=== PATIENT | female | born 1990 | race Caucasian/White ===

== ENCOUNTER 2016-06-15 17:45 | Emergency (ER) | payer OTHER ==
[~2016-06-15] VITALS: Ht 172.7 cm; Wt 147.4 kg
[2016-06-15 18:10] VITALS: BP 137/89
[2016-06-15] MEDS ORDERED: BACITRACIN-POLYMYXIN B TOPICAL OINT UD TOP ONE (19:08)
[2016-06-15] MEDS ORDERED: NEOMYCIN-BACITRACIN-POLYM UNITDOSE PKG TOP OINT TOP ONE (19:15)
[2016-06-15] MEDS ORDERED: BACITRACIN TOP OINT 1 UD PKG TOP ONE (19:15)
== END 2016-06-15 20:10 | disposition home or self-care (01) ==
LOC: ER 18:01
DX: S91.011D Laceration without foreign body, right ankle, subsequent encounter (principal); F12.10 Cannabis abuse, uncomplicated; Z48.02 Encounter for removal of sutures; Z88.0 Allergy status to penicillin

== ENCOUNTER 2017-01-23 14:02 | Emergency (ER) | payer SELFPAY ==
[~2017-01-23] VITALS: Ht 172.7 cm; Wt 160.6 kg
[2017-01-23 17:05] VITALS: BP 135/92
== END 2017-01-23 17:43 | disposition home or self-care (01) ==
LOC: ER 14:09
DX: J20.9 Acute bronchitis, unspecified (principal); Z87.81 Personal history of (healed) traumatic fracture; F12.10 Cannabis abuse, uncomplicated

== ENCOUNTER 2017-05-17 12:09 | Inpatient (IN) | payer SELFPAY ==
[~2017-05-17] VITALS: Ht 172.7 cm; Wt 149.7 kg
[2017-05-17] MEDS ORDERED: ACETAMINOPHEN 325 MG TAB PO ONE ×2 (13:23→13:45)
[2017-05-17 14:09] LABS: Basophils # (auto) 0.1 uL; Eosinophils # (auto) 0 uL; Eosinophils % (auto) 0.2 % (0.0-7.0); Mean Corpuscular Volume 79.6 fL (80.0-100.0); Nucleated Red Blood Cells % 0.1 %
[2017-05-17 14:12] LABS: Basophils % (auto) 0.5 % (0.0-2.0); Hematocrit 42.1 % (36.0-46.0); Hemoglobin 13.6 g/dL (12.2-16.2); Lymphocytes # (auto) 2.1 uL; Lymphocytes % (auto) 13.8 % (10.0-50.0); Mean Corpuscular Hemoglobin 25.7 pg (28.0-32.0); Mean Corpuscular Hgb Conc. 32.3 g/dL (32.0-36.0); Monocytes # (auto) 0.6 uL; Monocytes % (auto) 3.8 % (0.0-12.0); Neutrophils # (auto) 12.6 uL; Neutrophils % (auto) 81.7 % (37.0-80.0); Platelet Count (auto) 178 10^3/uL (140-450); Red Blood Cells 5.28 10^6/uL (4.0-5.20); White Blood Cell 15.4 10^3/uL (4.4-10.8)
[2017-05-17 14:20] LABS: Albumin 3.7 g/dL (3.4-5.0); BUN/Creatinine Ratio 17.5; Bilirubin, Total 0.7 mg/dL (0.2-1.0); Calcium 8.8 mg/dL (8.5-10.1); Potassium 4.8 mmol/L (3.5-5.1); Total Protein 8.1 g/dL (6.4-8.2)
[2017-05-17] MEDS ORDERED: SODIUM CHLORIDE 0.9% 1,000 ML IVB ONE (17:53)
[2017-05-17] MEDS ORDERED: cefTRIAXone 1GM/10ml IVPUSH 10 ML IV ONE (19:00)
[2017-05-17] MEDS ORDERED: MORPHINE SULFATE 4 MG/ML SYRG ONE (19:17)
[2017-05-17] MEDS ORDERED: cefTRIAXone SOD 1,000 MG VL ONE (19:17)
[2017-05-17] MEDS ORDERED: ONDANSETRON HCL 4 MG/2 ML VIAL IV ONE (19:30)
[2017-05-17] MEDS ORDERED: MORPHINE SULF INJ 2 MG/ML SYRINGE 1ML IV ONE (19:30)
[2017-05-17] MEDS ORDERED: metroNIDAZOLE 500MG/100ML 100 ML IV ONE (19:30)
[2017-05-17 20:25] LABS: INR 0.99 (0.9-1.15); Partial Thromboplastin Time 26.8 sec (22.64-33.71); Prothrombin Time 10.8 sec (9.37-12.3)
[2017-05-17] MEDS ORDERED: ACETAMINOPHEN 325 MG TAB PO PRN (21:00)
[2017-05-17] MEDS: MORPHINE SULFATE 4 MG/ML SYRG IV PRN (21:37)
[2017-05-17] MEDS: ONDANSETRON HCL 4 MG/2 ML VIAL IV PRN (21:37)
[2017-05-17 21:45] VITALS: BP 113/92
[2017-05-18] MEDS: metroNIDAZOLE 500MG/100ML 100 ML IV SCH ×3 (04:33→21:05)
[2017-05-18] MEDS: MORPHINE SULFATE 4 MG/ML SYRG IV PRN ×3 (04:35→18:38)
[2017-05-18] MEDS ORDERED: cefTRIAXone 1GM/10ml IVPUSH 10 ML IV ONE (05:00)
[2017-05-18 05:52] LABS: Basophils # (auto) 0 uL; Eosinophils # (auto) 0 uL; Eosinophils % (auto) 0.1 % (0.0-7.0); Hemoglobin 11.8 g/dL (12.2-16.2); Lymphocytes # (auto) 1.9 uL; Lymphocytes % (auto) 12.7 % (10.0-50.0); Nucleated Red Blood Cells % 0.1 %
[2017-05-18 05:55] LABS: Basophils % (auto) 0.1 % (0.0-2.0); Hematocrit 36.3 % (36.0-46.0); Mean Corpuscular Hemoglobin 25.9 pg (28.0-32.0); Mean Corpuscular Hgb Conc. 32.4 g/dL (32.0-36.0); Mean Corpuscular Volume 79.8 fL (80.0-100.0); Monocytes % (auto) 6.7 % (0.0-12.0); Neutrophils % (auto) 80.4 % (37.0-80.0); Platelet Count (auto) 334 10^3/uL (140-450); Red Blood Cells 4.54 10^6/uL (4.0-5.20); Red Cell Distribution Width 13.9 % (11.8-14.3); White Blood Cell 14.9 10^3/uL (4.4-10.8)
[2017-05-18 06:34] LABS: BUN/Creatinine Ratio 13.4; Calcium 8.1 mg/dL (8.5-10.1); Potassium 3.9 mmol/L (3.5-5.1)
[2017-05-18] MEDS: ONDANSETRON HCL 4 MG/2 ML VIAL IV PRN ×2 (09:15→18:38)
[2017-05-18 09:42] VITALS: BP 104/31
[2017-05-18] MEDS ORDERED: ROCURONIUM 10MG/ML 10ML VIAL IV ONE (09:59)
[2017-05-18] MEDS ORDERED: METOCLOPRAMIDE HCL 5MG/ml INJ 2ml VIAL ONE (09:59)
[2017-05-18] MEDS ORDERED: MIDAZOLAM HCL 1MG/1ML-2 ML VIAL ONE (09:59)
[2017-05-18] MEDS ORDERED: PROPOFOL 10 MG/ML 20 ML IV ONE (09:59)
[2017-05-18] MEDS ORDERED: LIDOCAINE HCL 2 %PF INJ 10ML AMP IJ ONE (09:59)
[2017-05-18] MEDS ORDERED: fentaNYL CITRATE 100 MCG/2 ML VL ONE (10:20)
[2017-05-18] MEDS ORDERED: KETOROLAC TROMETH 30 MG/ML 1ML VIAL ONE (10:30)
[2017-05-18] MEDS ORDERED: DEXAMETHASONE SOD PHOS 10MG/1ML VIAL INJ ONE (10:30)
[2017-05-18 10:37] LABS: Urine Bacteria FEW /hpf (None Seen); Urine Blood Negative /uL (Negative); Urine Mucus FEW (None Seen); Urine Specific Gravity 1.027 (1.001-1.035); Urine WBC 22 /hpf (0 - 5)
[2017-05-18] MEDS ORDERED: GLYCOPYRROLATE 0.2 MG/ML 1ML VIAL ONE ×2 (10:41→10:42)
[2017-05-18] MEDS ORDERED: NEOSTIGMINE 1 MG/ML INJ (10mg/10ML VIAL) ONE (10:42)
[2017-05-18] MEDS: ONDANSETRON HCL 4 MG/2 ML VIAL IV ONE ×2 (11:00→11:25)
[2017-05-18] MEDS ORDERED: HYDROmorphone HCL 2 MG/ML VL IV PRN ×2 (11:00)
[2017-05-18] MEDS ORDERED: NALOXONE HCL 0.4 MG/ML VIAL IV PRN (11:00)
[2017-05-18 13:03] VITALS: BP 110/57
[2017-05-18 17:00] VITALS: BP 103/46
[2017-05-18] MEDS ORDERED: PANTOPRAZOLE 40 MG/10 ML VIAL IV ONE (22:45)
[2017-05-18 22:50] VITALS: BP 126/72
[2017-05-19 03:58] VITALS: BP 92/39
[2017-05-19] MEDS: metroNIDAZOLE 500MG/100ML 100 ML IV SCH ×3 (04:11→20:11)
[2017-05-19 05:11] VITALS: BP 95/28
[2017-05-19 07:56] VITALS: BP 131/59
[2017-05-19] MEDS: ONDANSETRON HCL 4 MG/2 ML VIAL IV PRN (08:46)
[2017-05-19] MEDS: MORPHINE SULFATE 4 MG/ML SYRG IV PRN (08:46)
[2017-05-19 12:09] VITALS: BP 115/52
[2017-05-19] MEDS ORDERED: HYDROcodone-ACET 5/325MG TAB PO PRN (14:30)
[2017-05-19 17:16] VITALS: BP 116/62
[2017-05-19] MEDS: metroNIDAZOLE 500 MG TAB PO SCH (21:28)
[2017-05-19 21:45] VITALS: BP 105/55
[2017-05-20 05:20] VITALS: BP 108/61
[2017-05-20] MEDS: metroNIDAZOLE 500 MG TAB PO SCH (05:40)
[2017-05-20 06:00] VITALS: BP 127/48
[2017-05-20 10:19] VITALS: BP 127/48
== END 2017-05-20 12:45 | disposition home or self-care (01) | DRG 342 ==
LOC: ER 12:09 → OVERFLOW 12:10 → CENTRAL 21:45
PROVIDERS: ADMIT Nurse Practitioner Family; ATTEND Family Medicine
PROC: 0DTJ4ZZ Resection of Appendix, Percutaneous Endoscopic Approach (ICD-10-PCS; principal; 2017-05-18 10:02)
DX: K35.80 Unspecified acute appendicitis (principal); Z68.43 Body mass index [BMI] 50.0-59.9, adult; E66.01 Morbid (severe) obesity due to excess calories; Z82.49 Family history of ischemic heart disease and other diseases of the circulatory system; Z83.3 Family history of diabetes mellitus; Z82.3 Family history of stroke; Z82.5 Family history of asthma and other chronic lower respiratory diseases; Z80.1 Family history of malignant neoplasm of trachea, bronchus and lung; Z82.61 Family history of arthritis; Z88.0 Allergy status to penicillin
CPT/HCPCS: 36415; 71010; 74176; 80048; 80053; 81001; 82150; 83690; 83735; 84702; 85025; 85610; 85730; 86850; 86900; 86901; 93005; 94761; 96365; 96367; 96375; C9113; J0696; J1100; J1885; J2250; J2405; J2704; J3490

== ENCOUNTER 2017-07-02 20:23 | Emergency (ER) | payer MEDICAID ==
[~2017-07-02] VITALS: Ht 172.7 cm; Wt 145.1 kg
[2017-07-02 20:43] VITALS: BP 146/71
[2017-07-02] MEDS ORDERED: DEXAMETHASONE SOD PHOS 10MG/1ML VIAL INJ IM ONE (23:15)
[2017-07-02] MEDS ORDERED: KETOROLAC TROMETH 60MG/2ML VIAL IM ONE (23:15)
== END 2017-07-02 23:31 | disposition home or self-care (01) ==
LOC: ER 20:27
DX: M54.30 Sciatica, unspecified side (principal); J06.9 Acute upper respiratory infection, unspecified; Z88.0 Allergy status to penicillin
CPT/HCPCS: 81025; 96372; 99284; J1100; J1885

== ENCOUNTER 2017-09-22 20:00 | Emergency (ER) | payer MEDICAID ==
[~2017-09-22] VITALS: Ht 172.7 cm; Wt 147.4 kg
[2017-09-22 21:32] LABS: Albumin 3.5 g/dL (3.4-5.0); BUN/Creatinine Ratio 13.7; Basophils # (auto) 0 uL; Basophils % (auto) 0.4 % (0.0-2.0); Bilirubin, Total 0.4 mg/dL (0.2-1.0); Calcium 8.4 mg/dL (8.5-10.1); Lymphocytes # (auto) 2.7 uL; Lymphocytes % (auto) 28.2 % (10.0-50.0); Magnesium 2.4 mg/dL (1.6-2.6); Mean Corpuscular Volume 80.8 fL (80.0-100.0); Monocytes # (auto) 0.6 uL; Neutrophils # (auto) 6.1 uL; Potassium 4.2 mmol/L (3.5-5.1); Total Protein 7.7 g/dL (6.4-8.2)
[2017-09-22 21:38] LABS: Eosinophils # (auto) 0.2 uL; Eosinophils % (auto) 1.6 % (0.0-7.0); Hematocrit 41.1 % (36.0-46.0); Hemoglobin 13.4 g/dL (12.2-16.2); Mean Corpuscular Hemoglobin 26.3 pg (28.0-32.0); Mean Corpuscular Hgb Conc. 32.6 g/dL (32.0-36.0); Monocytes % (auto) 6.6 % (0.0-12.0); Neutrophils % (auto) 63.2 % (37.0-80.0); Nucleated Red Blood Cells % 0.1 %; Platelet Count (auto) 350 10^3/uL (140-450); Red Blood Cells 5.09 10^6/uL (4.0-5.20); Red Cell Distribution Width 14.7 % (11.8-14.3); White Blood Cell 9.7 10^3/uL (4.4-10.8)
[2017-09-23] MEDS ORDERED: KETOROLAC TROMETH 60MG/2ML VIAL IM ONE (00:15)
[2017-09-23 00:35] LABS: Urine Bacteria NONE SEEN /hpf (None Seen); Urine Blood 2+ /uL (Negative); Urine Specific Gravity 1.022 (1.001-1.035); Urine WBC 5 /hpf (0 - 5)
[2017-09-23 02:32] VITALS: BP 152/86
== END 2017-09-23 03:22 | disposition home or self-care (01) ==
LOC: ER 20:00
DX: S09.90XA Unspecified injury of head, initial encounter (principal); N39.0 Urinary tract infection, site not specified; R42 Dizziness and giddiness; R55 Syncope and collapse; F17.210 Nicotine dependence, cigarettes, uncomplicated; X58.XXXA Exposure to other specified factors, initial encounter; Y93.89 Activity, other specified; Y92.89 Other specified places as the place of occurrence of the external cause; Y99.8 Other external cause status
CPT/HCPCS: 36415; 70450; 80053; 81001; 83735; 85025; 96372; 99285; J1885

== ENCOUNTER 2017-10-21 22:17 | Emergency (ER) | payer MEDICAID ==
[~2017-10-21] VITALS: Ht 172.7 cm; Wt 152.0 kg
[2017-10-21 22:52] LABS: Urine Bacteria FEW /hpf (None Seen); Urine Blood Negative /uL (Negative); Urine Specific Gravity 1.024 (1.001-1.035); Urine WBC 8 /hpf (0 - 5)
[2017-10-21 23:14] LABS: Basophils # (auto) 0.1 uL; Basophils % (auto) 0.7 % (0.0-2.0); Eosinophils # (auto) 0.2 uL; Hemoglobin 13.4 g/dL (12.2-16.2)
[2017-10-21 23:15] LABS: Hematocrit 40.2 % (36.0-46.0); Lymphocytes # (auto) 3.4 uL; Mean Corpuscular Hemoglobin 26.7 pg (28.0-32.0); Mean Corpuscular Hgb Conc. 33.2 g/dL (32.0-36.0); Mean Corpuscular Volume 80.5 fL (80.0-100.0); Monocytes # (auto) 0.6 uL; Monocytes % (auto) 5.3 % (0.0-12.0); Neutrophils # (auto) 7.1 uL; Platelet Count (auto) 347 10^3/uL (140-450); Red Cell Distribution Width 14.3 % (11.8-14.3); White Blood Cell 11.4 10^3/uL (4.4-10.8)
[2017-10-21 23:32] LABS: Albumin 3.7 g/dL (3.4-5.0); BUN/Creatinine Ratio 11.1; Bilirubin, Total 0.3 mg/dL (0.2-1.0); Calcium 8.9 mg/dL (8.5-10.1); Magnesium 2.3 mg/dL (1.6-2.6); Potassium 3.8 mmol/L (3.5-5.1); Total Protein 7.9 g/dL (6.4-8.2)
[2017-10-22 00:20] VITALS: BP 146/71
[2017-10-22] MEDS ORDERED: FAMOTIDINE 20 MG TAB PO ONE (00:45)
== END 2017-10-22 01:35 | disposition home or self-care (01) ==
LOC: ER 22:17
DX: K21.9 Gastro-esophageal reflux disease without esophagitis (principal); N39.0 Urinary tract infection, site not specified; F17.210 Nicotine dependence, cigarettes, uncomplicated; E66.01 Morbid (severe) obesity due to excess calories; Z68.43 Body mass index [BMI] 50.0-59.9, adult; Z88.0 Allergy status to penicillin
CPT/HCPCS: 36415; 71045; 80053; 81001; 81025; 83690; 83735; 85025

== ENCOUNTER 2017-12-27 16:32 | Emergency (ER) | payer MEDICAID ==
[~2017-12-27] VITALS: Ht 172.7 cm; Wt 149.7 kg
[2017-12-27 16:47] VITALS: BP 127/55
[2017-12-27] MEDS ORDERED: KETOROLAC TROMETH 60MG/2ML VIAL IM ONE (18:00)
== END 2017-12-27 19:12 | disposition home or self-care (01) ==
LOC: ER 16:36
DX: M54.9 Dorsalgia, unspecified (principal); N39.0 Urinary tract infection, site not specified; J06.9 Acute upper respiratory infection, unspecified; E78.5 Hyperlipidemia, unspecified; F17.210 Nicotine dependence, cigarettes, uncomplicated; Z88.0 Allergy status to penicillin; Z90.49 Acquired absence of other specified parts of digestive tract
CPT/HCPCS: 71045; 81025; 96372; 99283; J1885

== ENCOUNTER 2018-02-13 16:01 | Emergency (ER) | payer MEDICAID ==
[~2018-02-13] VITALS: Ht 172.7 cm; Wt 147.4 kg
[2018-02-13 17:23] LABS: Urine Bacteria FEW /hpf (None Seen); Urine Blood 3+ /uL (Negative); Urine Mucus FEW (None Seen); Urine Specific Gravity 1.026 (1.001-1.035); Urine WBC 19 /hpf (0 - 5)
[2018-02-13 17:51] LABS: Basophils # (auto) 0.1 uL; Basophils % (auto) 1.2 % (0.0-2.0); Mean Corpuscular Hemoglobin 26.5 pg (28.0-32.0); Monocytes # (auto) 0.6 uL; White Blood Cell 10.8 10^3/uL (4.4-10.8)
[2018-02-13 17:53] LABS: Eosinophils # (auto) 0.1 uL; Eosinophils % (auto) 1.4 % (0.0-7.0); Hematocrit 40.1 % (36.0-46.0); Hemoglobin 13.1 g/dL (12.2-16.2); Lymphocytes # (auto) 2.6 uL; Lymphocytes % (auto) 23.7 % (10.0-50.0); Mean Corpuscular Hgb Conc. 32.6 g/dL (32.0-36.0); Mean Corpuscular Volume 81.2 fL (80.0-100.0); Monocytes % (auto) 5.5 % (0.0-12.0); Neutrophils # (auto) 7.4 uL; Neutrophils % (auto) 68.2 % (37.0-80.0); Platelet Count (auto) 336 10^3/uL (140-450); Red Blood Cells 4.93 10^6/uL (4.0-5.20); Red Cell Distribution Width 14.1 % (11.8-14.3)
[2018-02-13 18:03] LABS: Alanine Aminotransferase 29 U/L (13-56); Albumin 3.2 g/dL (3.4-5.0); Anion Gap 11 (5-15); Aspartate Aminotransferase 16 U/L (15-37); BUN/Creatinine Ratio 14.7; Blood Urea Nitrogen 10 mg/dL (7-18); Carbon Dioxide 22 mmol/L (21-32); Chloride 103 mmol/L (98-107); GFR African American 133 mL/min; GFR Non-African American 110 mL/min; Glucose 109 mg/dL (74-106); Potassium 3.5 mmol/L (3.5-5.1); Sodium 136 mmol/L (136-145)
[2018-02-13 18:08] LABS: Alkaline Phosphatase 71 U/L (45-117); Bilirubin, Total 0.5 mg/dL (0.2-1.0); Total Protein 7.4 g/dL (6.4-8.2)
[2018-02-13] MEDS ORDERED: SODIUM CHLORIDE 0.9% 1,000 ML IV ONE (23:00)
[2018-02-13 23:38] LABS: Basophils # (auto) 0 uL; Basophils % (auto) 0.4 % (0.0-2.0); Eosinophils # (auto) 0.1 uL; Hemoglobin 12.5 g/dL (12.2-16.2); Mean Corpuscular Hgb Conc. 32.4 g/dL (32.0-36.0); Monocytes # (auto) 0.6 uL; Neutrophils # (auto) 6.2 uL; Platelet Count (auto) 329 10^3/uL (140-450)
[2018-02-13 23:40] LABS: Eosinophils % (auto) 1.1 % (0.0-7.0); Hematocrit 38.5 % (36.0-46.0); Lymphocytes # (auto) 3.4 uL; Mean Corpuscular Hemoglobin 26.3 pg (28.0-32.0); Mean Corpuscular Volume 80.9 fL (80.0-100.0); Monocytes % (auto) 5.7 % (0.0-12.0); Neutrophils % (auto) 59.8 % (37.0-80.0); Nucleated Red Blood Cells % 0.1 %; Red Blood Cells 4.76 10^6/uL (4.0-5.20); Red Cell Distribution Width 14.3 % (11.8-14.3); White Blood Cell 10.4 10^3/uL (4.4-10.8)
[2018-02-13 23:53] LABS: INR 0.93 (0.9-1.15)
[2018-02-13 23:57] LABS: Alanine Aminotransferase 25 U/L (13-56); Albumin 2.9 g/dL (3.4-5.0); Anion Gap 11 (5-15); Aspartate Aminotransferase 18 U/L (15-37); BUN/Creatinine Ratio 14.7; Blood Urea Nitrogen 11 mg/dL (7-18); Calcium 7.8 mg/dL (8.5-10.1); Carbon Dioxide 22 mmol/L (21-32); Chloride 107 mmol/L (98-107); GFR African American 118 mL/min; GFR Non-African American 98 mL/min; Glucose 128 mg/dL (74-106); Potassium 3.5 mmol/L (3.5-5.1); Sodium 140 mmol/L (136-145)
[2018-02-14 00:02] LABS: Alkaline Phosphatase 67 U/L (45-117); Bilirubin, Total 0.3 mg/dL (0.2-1.0); Total Protein 6.9 g/dL (6.4-8.2)
[2018-02-14 01:09] VITALS: BP 113/57
== END 2018-02-14 01:32 | disposition home or self-care (01) ==
LOC: ER 16:01
DX: S96.911A Strain of unspecified muscle and tendon at ankle and foot level, right foot, initial encounter (principal); N39.0 Urinary tract infection, site not specified; R51 Headache; R06.02 Shortness of breath; R07.9 Chest pain, unspecified; E78.5 Hyperlipidemia, unspecified; F12.10 Cannabis abuse, uncomplicated; X58.XXXA Exposure to other specified factors, initial encounter; Y93.89 Activity, other specified; Y92.89 Other specified places as the place of occurrence of the external cause; Y99.8 Other external cause status
CPT/HCPCS: 36415; 71046; 73610; 80053; 81001; 83735; 83880; 84443; 84484; 85025; 85379; 85610; 85730; 93005; 94761; 99285; J7030

== ENCOUNTER 2018-02-26 01:11 | Emergency (ER) | payer MEDICAID ==
[~2018-02-26] VITALS: Ht 172.7 cm; Wt 147.4 kg
[2018-02-26] MEDS ORDERED: LORazepam 2MG/ML-1ML VIAL IM ONE (02:45)
[2018-02-26 03:22] VITALS: BP 166/73
== END 2018-02-26 03:50 | disposition home or self-care (01) ==
LOC: ER 01:11
DX: F41.9 Anxiety disorder, unspecified (principal); F12.10 Cannabis abuse, uncomplicated
CPT/HCPCS: 71045; 93005; 96372; 99284; J2060

== ENCOUNTER 2018-02-27 00:41 | Emergency (ER) | payer MEDICAID ==
[~2018-02-27] VITALS: Ht 172.7 cm; Wt 147.4 kg
[2018-02-27 01:15] LABS: Basophils # (auto) 0.1 uL; Lymphocytes # (auto) 3.4 uL; Monocytes # (auto) 0.6 uL; Nucleated Red Blood Cells % 0.1 %; Red Cell Distribution Width 13.8 % (11.8-14.3)
[2018-02-27 01:16] LABS: Eosinophils # (auto) 0.2 uL; Eosinophils % (auto) 1.4 % (0.0-7.0); Hematocrit 39.3 % (36.0-46.0); Lymphocytes % (auto) 30.9 % (10.0-50.0); Mean Corpuscular Hemoglobin 26.5 pg (28.0-32.0); Mean Corpuscular Hgb Conc. 33.1 g/dL (32.0-36.0); Mean Corpuscular Volume 79.9 fL (80.0-100.0); Monocytes % (auto) 5.4 % (0.0-12.0); Neutrophils # (auto) 6.7 uL; Neutrophils % (auto) 61.3 % (37.0-80.0); Platelet Count (auto) 314 10^3/uL (140-450); Red Blood Cells 4.92 10^6/uL (4.0-5.20); White Blood Cell 10.9 10^3/uL (4.4-10.8)
[2018-02-27 01:31] LABS: Anion Gap 10 (5-15); Blood Urea Nitrogen 8 mg/dL (7-18); Calcium 7.7 mg/dL (8.5-10.1); Carbon Dioxide 23 mmol/L (21-32); Chloride 104 mmol/L (98-107); Glucose 179 mg/dL (74-106); Magnesium 1.8 mg/dL (1.6-2.6); Potassium 3.8 mmol/L (3.5-5.1); Sodium 137 mmol/L (136-145)
[2018-02-27 01:34] LABS: Alanine Aminotransferase 25 U/L (13-56); Aspartate Aminotransferase 14 U/L (15-37); BUN/Creatinine Ratio 7.9; GFR African American 84 mL/min; GFR Non-African American 69 mL/min
[2018-02-27 01:38] LABS: Alkaline Phosphatase 72 U/L (45-117); Bilirubin, Total 0.5 mg/dL (0.2-1.0)
[2018-02-27 03:55] LABS: Urine Bacteria FEW /hpf (None Seen); Urine Blood 2+ /uL (Negative); Urine Mucus FEW (None Seen); Urine WBC 23 /hpf (0 - 5)
[2018-02-27 04:13] LABS: Alcohol, Urine < 3.0 mg/dL (0-5); Amphetamine Screen, Urine NEGATIVE (NEGATIVE); Barbiturate Scree,Urine NEGATIVE (NEGATIVE); Benzodiazephine Screen, Urine NEGATIVE (NEGATIVE); Cannabinoid Screen, Urine POSITIVE (NEGATIVE); Cocaine Screen, Urine NEGATIVE (NEGATIVE); Opiate Scree,Urine NEGATIVE (NEGATIVE); Phencyclidine Screen, Urine NEGATIVE (NEGATIVE)
[2018-02-27 06:00] VITALS: BP 141/62
== END 2018-02-27 07:14 | disposition home or self-care (01) ==
LOC: ER 00:44
DX: N39.0 Urinary tract infection, site not specified (principal); R07.89 Other chest pain; J45.909 Unspecified asthma, uncomplicated; F12.10 Cannabis abuse, uncomplicated; Z90.89 Acquired absence of other organs
CPT/HCPCS: 36415; 80053; 80307; 81001; 81025; 83735; 84484; 85025; 93005

== ENCOUNTER 2018-06-27 13:22 | Emergency (ER) | payer MEDICAID ==
[~2018-06-27] VITALS: Ht 175.3 cm; Wt 149.7 kg
[2018-06-27 13:45] VITALS: BP 156/99
== END 2018-06-27 16:57 | disposition home or self-care (01) ==
LOC: ER 13:26
DX: J02.9 Acute pharyngitis, unspecified (principal); R42 Dizziness and giddiness; R11.0 Nausea; R53.83 Other fatigue; J45.909 Unspecified asthma, uncomplicated; E78.5 Hyperlipidemia, unspecified; G43.909 Migraine, unspecified, not intractable, without status migrainosus; F12.90 Cannabis use, unspecified, uncomplicated; Z90.49 Acquired absence of other specified parts of digestive tract
CPT/HCPCS: 71046

== ENCOUNTER → 2019-07-16 | Emergency (ER) | payer MEDICAID ==
[~2019-07-16] VITALS: Ht 172.7 cm; Wt 178.3 kg
[2019-07-16 20:31] LABS: Hematocrit 40.5 % (36.0-46.0); Lymphocytes # (auto) 3.2 uL; Mean Corpuscular Hemoglobin 25.4 pg (28.0-32.0); Monocytes # (auto) 0.6 uL; Monocytes % (auto) 5.1 % (0.0-12.0)
[2019-07-16 20:32] LABS: Basophils # (auto) 0 uL; Basophils % (auto) 0.4 % (0.0-2.0); Eosinophils # (auto) 0.1 uL; Eosinophils % (auto) 1.2 % (0.0-7.0); Lymphocytes % (auto) 29.7 % (10.0-50.0); Mean Corpuscular Hgb Conc. 32.1 g/dL (32.0-36.0); Mean Corpuscular Volume 79.2 fL (80.0-100.0); Neutrophils # (auto) 6.9 uL; Neutrophils % (auto) 63.6 % (37.0-80.0); Nucleated Red Blood Cells % 0.1 %; Platelet Count (auto) 319 10^3/uL (140-450); Red Blood Cells 5.11 10^6/uL (4.0-5.20); Red Cell Distribution Width 14.5 % (11.8-14.3); White Blood Cell 10.9 10^3/uL (4.4-10.8)
[2019-07-16 20:39] LABS: Alanine Aminotransferase 23 U/L (13-56); Albumin 3.2 g/dL (3.4-5.0); Anion Gap 6 (5-15); Aspartate Aminotransferase 12 U/L (15-37); BUN/Creatinine Ratio 18.5; Blood Urea Nitrogen 12 mg/dL (7-18); Calcium 8.5 mg/dL (8.5-10.1); Carbon Dioxide 26 mmol/L (21-32); Chloride 103 mmol/L (98-107); GFR African American 139 mL/min; GFR Non-African American 115 mL/min; Glucose 136 mg/dL (74-106); Potassium 3.9 mmol/L (3.5-5.1); Sodium 135 mmol/L (136-145)
[2019-07-16 20:40] LABS: Urine Bacteria NONE SEEN /hpf (None Seen); Urine Blood Negative /uL (Negative); Urine Specific Gravity 1.018 (1.001-1.035); Urine WBC 3 /hpf (0 - 5)
[2019-07-16 20:41] LABS: Alkaline Phosphatase 72 U/L (45-117); Bilirubin, Total 0.4 mg/dL (0.2-1.0); Total Protein 7.7 g/dL (6.4-8.2)
[2019-07-16 22:42] VITALS: BP 132/76
== END | disposition home or self-care (01) ==
LOC: ER
DX: R42 Dizziness and giddiness (principal); R51 Headache; J45.909 Unspecified asthma, uncomplicated; E78.5 Hyperlipidemia, unspecified
CPT/HCPCS: 36415; 70450; 71045; 80053; 81001; 81025; 82962; 85025; 93005

== ENCOUNTER 2019-07-24 15:13 | Emergency (ER) | payer MEDICAID ==
[~2019-07-24] VITALS: Ht 172.7 cm; Wt 172.4 kg
[2019-07-24 15:29] VITALS: BP 155/63
== END 2019-07-24 18:11 | disposition home or self-care (01) ==
LOC: ER 15:13
DX: J06.9 Acute upper respiratory infection, unspecified (principal); J45.909 Unspecified asthma, uncomplicated; E78.5 Hyperlipidemia, unspecified

== ENCOUNTER 2021-09-22 18:11 | Emergency (ER) | payer MEDICAID ==
[~2021-09-22] VITALS: Ht 172.7 cm; Wt 163.3 kg
[2021-09-22 20:00] LABS: Urine Bacteria FEW /hpf (None Seen); Urine Blood 3+ /uL (Negative); Urine Mucus FEW (None Seen); Urine Specific Gravity 1.028 (1.001-1.035); Urine WBC 12 /hpf (0 - 5)
[2021-09-22 22:43] VITALS: BP 144/75
[2021-09-22] MEDS ORDERED: ONDA-144 PO (22:56)
[2021-09-22] MEDS ORDERED: PSEU1TAB26 PO (22:56)
== END 2021-09-23 00:30 | disposition home or self-care (01) ==
LOC: ER 18:11
DX: R20.2 Paresthesia of skin (principal); F12.10 Cannabis abuse, uncomplicated; J45.909 Unspecified asthma, uncomplicated; E78.5 Hyperlipidemia, unspecified; Z88.0 Allergy status to penicillin; Z88.1 Allergy status to other antibiotic agents
CPT/HCPCS: 71045; 81001; 93971

== ENCOUNTER 2023-07-05 16:26 | Emergency (ER) | payer SELFPAY ==
[~2023-07-05 16:26] MED LIST: ONDA-144 PO; PSEU1TAB26 PO
== END 2023-07-05 18:15 | disposition left against medical advice (07) ==
LOC: ER 16:26
DX: R05.9 Cough, unspecified (principal); Z53.21 Procedure and treatment not carried out due to patient leaving prior to being seen by health care provider

== ENCOUNTER 2024-07-09 15:32 | Inpatient (IN) | payer MEDICAID ==
[~2024-07-09] VITALS: Ht 172.7 cm; Wt 110.5 kg
--- NOTE | 2024-07-09 16:02 | ED.PDOC ---
Musculoskeletal HPI Comments HPI: Poor Historian. 33 y.o female presents to the ED for a chief complaint of bilateral feet pain that has been ongoing for a while. Patient describes symptom as a numbness, sharp, and stabbing sensation. Patient has a history of previous tingling sensation but was not evaluated then for complaint. Patient also presents with right 5th digit bruising s/p stubbing toe chasing her cat. No lacerations reported. Vitals BP: 171/108 HR: 98 Temp: 98 F SPO2: 98% RA RR:19 Past medical history: DM, asthma, hyperlipidemia Past surgical history: Appendectomy Allergies: Amoxicillins, penicillins. REVIEW OF SYSTEMS: CONSTITUTIONAL: Denies acute: fever, diaphoresis, chills, generalized weakness. HEAD: Denies acute: headache, photophobia Eyes: Denies acute: Double vision, vision loss, eye pain, eye discharge. EARS: Denies acute: tinnitus, hearing loss, ear discharge, ear pain, THROAT: Denies acute: sore throat, swelling, difficulty swallowing , pain with swallowing, change in voice. NECK: Denies acute: neck pain, neck swelling, stiff neck. HEART: Denies acute : chest pain, palpitations, LUNGS: Denies acute: SOB, wheezing, cough, hemoptysis ABDOMEN: Denies acute: abdominal pain, Nausea, Vomiting, diarrhea, melena , hematemesis, hematochezia SKIN: Denies acute: rash, redness, lesions, itchiness. EXTREMITIES: Denies acute: calf pain, weakness, denies pain in extremity. Denies acute: Low back pain. Neuro: Denies acute: focal neurological deficit, motor or sensory focal neurological deficit, tremors, seizure like activity, confusion, dizziness, change in mental status, loss of bowel or bladder function, cauda equina like symptoms. : Denies acute: dysuria, hematuria, flank pain, increase in urinary frequency. PSYCH: Denies acute: hallucination, suicidal ideation, homicidal ideation. FEMALE: Denies acute: abnormal vaginal bleeding, foul odor, unusual discharge. PHYSICAL EXAM: General: no acute distress, awake and alert. Head: normocephalic, atraumatic. Neck: supple, trachea is midline, no swelling. Throat: Normal phonation. Eyes:, no erythema, no purulent discharge, no proptosis, no icterus. Heart: regular rate, regular rhythm, no significant murmur appreciated. Lungs: no apparent respiratory distress, Able to speak in full sentences. No wheezing, no rhonchi, no crackles. No stridors Clear to auscultation bilaterally. Abdomen: non tender to palpation, non distended, soft, no guarding, no rebound, + bowel sounds. Morbidly obese Neuro: Awake, Alert, oriented to name, self, situation, follows commands GCS=15. Speech is normal. Skin: no petechia, no purpura, no cyanosis, non-pale, not jaundice. Lower extremities: --no - Pitting edema no deformity, no focal swelling, no calf TTP. Makes eye contact. moves all four extremities. Face: no apparent facial droop. Pedal pulses are palpable. ED COURSE: Chief Complaint: Lower Extremity Time Seen by MD: 15:43 Primary Care Provider: DARWIN Hoff Notes: Medications, Allergies Allergies: Coded Allergies: Amoxicillin (Verified Allergy, Unknown, 02/26/18) Penicillins (Verified Allergy, Unknown, 08/29/15) Home Meds Active Scripts Pseudoephedrine Hcl (SUDAFED CONGESTION) 30 Mg Tab, 30 MG PO BIDPRN PRN for 5 Days, #10 TAB Prov:CONNOR ROE MD 09/22/21 Ondansetron (Zofran) 4 Mg Tab, 4 MG PO Q6HP PRN for 5 Days, #15 TAB Prov:CONNOR ROE MD 09/22/21 Information Source: Patient Mode of Arrival: Wheelchair Location: Bilateral Past Medical History PAST MEDICAL HISTORY: Asthma, DM, High Lipids Surgical History: Appendectomy INCIDENT COORDINATOR History: No Pertinent INCIDENT COORDINATOR History Family History Family History: Unknown Social History Smoker: Non-Smoker Alcohol: Occasionally Drugs: Marijuana Lives In: Home Was a procedure done? Was a procedure done?: No Differential Diagnosis EXT Differential Diagnosis: Cellulitis, CHF, Deep Vein Thrombosis, Compartment Syndrome, Fracture, Dislocation, Gout, Contusion, Strain, Septic, Neurovascular injury, Arthritis X-Ray, Labs, Meds, VS Vital Signs Date Time Temp Pulse Resp B/P (MAP) Pulse Ox O2 Delivery O2 Flow Rate FiO2 07/09/24 22:26 61 18 96 Room Air* 0 21 07/09/24 22:25 98.5 60 20 140/93 (109) 96 98.5 07/09/24 15:52 98.0 70 19 171/108 (129) 98 Lab Test 07/09/24 23:10 07/09/24 20:16 07/09/24 17:55 Range/Units Lactic Acid Level 3.0 *H 2.8 *H 3.5 *H 0.4-2.0 mmol/L White Blood Count 9.9 4.4-10.8 10^3/uL Red Blood Count 5.28 H 4.0-5.20 10^6/uL Hemoglobin 14.2 12.2-16.2 g/dL Hematocrit 43.1 36.0-46.0 % Mean Corpuscular Volume 81.6 80.0-100.0 fL Mean Corpuscular Hemoglobin 26.9 L 28.0-32.0 pg Mean Corpuscular Hemoglobin Concent 32.9 32.0-36.0 g/dL Red Cell Distribution Width 13.6 11.8-14.3 % Platelet Count 297 140-450 10^3/uL Mean Platelet Volume 7.2 6.9-10.8 fL Neutrophils (%) (Auto) 57.8 37.0-80.0 % Lymphocytes (%) (Auto) 33.9 10.0-50.0 % Monocytes (%) (Auto) 6.4 0.0-12.0 % Eosinophils (%) (Auto) 1.2 0.0-7.0 % Basophils (%) (Auto) 0.7 0.0-2.0 % Neutrophils # (Auto) 5.7 1.6-8.6 10 ^3/uL Lymphocytes # (Auto) 3.3 0.4-5.4 10 ^3/uL Monocytes # (Auto) 0.6 0-1.3 10 ^3/uL Eosinophils # (Auto) 0.1 0-0.8 10 ^3/uL Basophils # (Auto) 0.1 0-0.2 10 ^3/uL Nucleated Red Blood Cells 0.1 % Erythrocyte Sedimentation Rate 19 0-20 mm/hr Sodium Level 133 L 136-145 mmol/L Potassium Level 4.0 3.5-5.1 mmol/L Chloride Level 99 98-107 mmol/L Carbon Dioxide Level 22 20-31 mmol/L Anion Gap 12 5-15 Blood Urea Nitrogen 7 L 9-23 mg/dL Creatinine 0.64 0.550-1.02 mg/dL Glomerular Filtration Rate Calc 119 >90 mL/min BUN/Creatinine Ratio 10.9 10.0-20.0 Serum Glucose 263 H 74-106 mg/dL Calcium Level 9.9 8.7-10.4 mg/dL Total Bilirubin 1.2 H 0.2-1.0 mg/dL Aspartate Amino Transferase (AST) 16 13-40 U/L Alanine Aminotransferase (ALT) 21 7-40 U/L Alkaline Phosphatase 74 46-116 U/L C-Reactive Protein High Sensitivity Pending B-Type Natriuretic Peptide 22.07 0-100 pg/mL Total Protein 7.6 5.7-8.2 g/dL Albumin 4.8 3.2-4.8 g/dL Current Medications Medications (Trade) Dose Ordered Sig/Satish Route Start Time Stop Time Status Last Admin Acetaminophen/ Hydrocodone Bitart (Minier 5/325MG Tab) 1 tab ONCE ONCE PO 07/09/24 16:00 07/09/24 16:01 DC 07/09/24 17:19 Sodium Chloride 1,000 ml @ 1,000 mls/hr Q1H ONCE IV 07/09/24 20:00 07/09/24 20:59 DC 07/09/24 20:00 Sodium Chloride 1,000 ml @ 1,000 mls/hr Q1H ONCE IV 07/09/24 21:45 07/09/24 22:44 DC 07/09/24 21:45 Clindamycin Phosphate 50 ml @ 50 mls/hr ONCE ONCE IV 07/10/24 00:15 07/10/24 01:14 DC 07/10/24 00:16 [place] [address] Ph: [phone] DIAGNOSTIC IMAGING Diagnostic Imaging Report : [id number] Signed PATIENT: JJ STUBBS ACCT: [id number] UNIT: [id number] : 1990 LOC: ER ROOM / BED: / AGE / SEX: 33 / F ADM STATUS: REG ER SERVICE [id number] ORDERING PHYSICIAN: NEY MENDOZA DO PROCEDURE(s): RTOE5 - R 5TH TOE XRAY REASON: pain ORDER NUMBER(s): [id number], ACCESSION NUMBER(s): [id number] CLINICAL INDICATION: pain TECHNIQUE: 4 radiographic views of the right 5th toe were obtained. Comparison: None FINDINGS/IMPRESSION: There is no evidence of acute fracture or dislocation. The visualized joint space is well maintained. The alignment is anatomical. There is no radiopaque foreign body. ATED BY: RADHA RAHMAN DO DICTATED DATE/TIME: 07/09/241625 SIGNED BY: RADHA RAHMAN DO SIGNED DATE/TIME: 07/09/241625 CC: [place] [address] Ph: [phone] DIAGNOSTIC IMAGING Diagnostic Imaging Report : [id number] Signed PATIENT: JJ STUBBS ACCT: [id number] UNIT: [id number] : 1990 LOC: ER ROOM / BED: / AGE / SEX: 33 / F ADM STATUS: REG ER SERVICE [id number] ORDERING PHYSICIAN: NEY MENDOZA DO PROCEDURE(s): BLDVT - BiLat Lower DVT REASON: leg pain ORDER NUMBER(s): [id number], ACCESSION NUMBER(s): [id number] EXAM: US Duplex Bilateral Lower Extremities Veins CLINICAL INDICATION: leg pain TECHNIQUE: Real-time duplex ultrasound scan of the bilateral lower extremity veins integrating B-mode two-dimensional vascular structure, Doppler spectral analysis, color flow Doppler imaging and compression. COMPARISON: LT LOWER DVT on DOS: 09/22/21 FINDINGS: RIGHT DEEP VEINS: Unremarkable. No DVT in the right common femoral, femoral, proximal deep femoral or popliteal veins. The veins demonstrate normal color flow, are normally compressible, with normal phasic flow and/or augmentation response. RIGHT SUPERFICIAL VEINS: Unremarkable. No thrombus in the visualized right great saphenous vein. LEFT DEEP VEINS: Unremarkable. No DVT in the left common femoral, femoral, proximal deep femoral or popliteal veins. The veins demonstrate normal color flow, are normally compressible, with normal phasic flow and/or augmentation response. LEFT SUPERFICIAL VEINS: Unremarkable. No thrombus in the visualized left great saphenous vein. SOFT TISSUES: No acute findings. No popliteal cyst. OTHER FINDINGS: . None. . . .. IMPRESSION: No DVT. ATED BY: CONNOR ROMERO MD DICTATED DATE/TIME: 07/09/241634 SIGNED BY: CONNOR ROMERO MD SIGNED DATE/TIME: 07/09/241634 CC: Time of 1ST Reevaluation: 15:54 Reevaluation 1ST: Unchanged Patient Education/Counseling: Diagnosis, Treatment Family Education/Counseling: No Family Present Comments Patient presented with the above HPI.--feet numbness and tingling----workup was initiated. patient was found with the above mentioned diagnosis. the following medications were ordered: please refer to order lists of meds and tests obtained by myself Dr. Mendoza. Patient ED course and VS have been stabilized. Patient has been reassessed in the ED and remained in a stable condition. Pertinent incidental findings were discussed with the patient and/or family. Patient/family voices understanding and is agreeable with plan. Patient has been observed in the ED adequate length of time to insure improvement/stability. Escalation of care considered: Consideration of escalation to observation or admission Patient was admitted for further evaluation and treatment as Lactic Acid continues to rise despite fluid resuscitation All the reports of any imaging studies that were ordered by myself were reviewed by myself. Departure 1 Departure Time of Disposition: 19:53 Impression: Primary Impression: Uncontrolled diabetes mellitus Additional Impressions: Numbness and tingling of both feet Contusion of right foot including toes Elevated lactic acid level Disposition: ADMITTED INPATIENT Admit to: Tele Condition: Guarded Additional Instructions: [facility] [id number] [place] [id number] Ph: [phone] DIAGNOSTIC IMAGING Diagnostic Imaging Report : [id number] Signed PATIENT: JJ STUBBS ACCT: [id number] UNIT: [id number] : 1990 LOC: ER ROOM / BED: / AGE / SEX: 33 / F ADM STATUS: REG ER SERVICE 1548 ORDERING PHYSICIAN: NEY MENDOZA DO PROCEDURE(s): RTOE5 - R 5TH TOE XRAY REASON: pain ORDER NUMBER(s): [id number], ACCESSION NUMBER(s): [id number] CLINICAL INDICATION: pain TECHNIQUE: 4 radiographic views of the right 5th toe were obtained. Comparison: None FINDINGS/IMPRESSION: There is no evidence of acute fracture or dislocation. The visualized joint space is well maintained. The alignment is anatomical. There is no radiopaque foreign body. ATED BY: RADHA RAHMAN DO DICTATED DATE/TIME: 07/09/241625 SIGNED BY: RADHA RAHMAN DO SIGNED DATE/TIME: 07/09/241625 CC: [place] [address] Ph: [phone] DIAGNOSTIC IMAGING Diagnostic Imaging Report : [id number] Signed PATIENT: JJ STUBBS ACCT: [id number] UNIT: [id number] : 1990 LOC: ER ROOM / BED: / AGE / SEX: 33 / F ADM STATUS: REG ER SERVICE 1543 ORDERING PHYSICIAN: NEY MENDOZA DO PROCEDURE(s): BLDVT - BiLat Lower DVT REASON: leg pain ORDER NUMBER(s): [id number], ACCESSION NUMBER(s): [id number] EXAM: US Duplex Bilateral Lower Extremities Veins CLINICAL INDICATION: leg pain TECHNIQUE: Real-time duplex ultrasound scan of the bilateral lower extremity veins integrating B-mode two-dimensional vascular structure, Doppler spectral analysis, color flow Doppler imaging and compression. COMPARISON: LT LOWER DVT on DOS: 09/22/21 FINDINGS: RIGHT DEEP VEINS: Unremarkable. No DVT in the right common femoral, femoral, proximal deep femoral or popliteal veins. The veins demonstrate normal color flow, are normally compressible, with normal phasic flow and/or augmentation response. RIGHT SUPERFICIAL VEINS: Unremarkable. No thrombus in the visualized right great saphenous vein. LEFT DEEP VEINS: Unremarkable. No DVT in the left common femoral, femoral, proximal deep femoral or popliteal veins. The veins demonstrate normal color flow, are normally compressible, with normal phasic flow and/or augmentation response. LEFT SUPERFICIAL VEINS: Unremarkable. No thrombus in the visualized left great saphenous vein. SOFT TISSUES: No acute findings. No popliteal cyst. OTHER FINDINGS: . None. . . .. IMPRESSION: No DVT. ATED BY: CONNOR ROMERO MD DICTATED DATE/TIME: 07/09/241634 SIGNED BY: CONNOR ROMERO MD SIGNED DATE/TIME: 07/09/24 163 CC: Discharged With: Self Critical Care Note Critical Care Time?: No I personally scribed for NEY MENDOZA DO ([email or web address]) on 07/09/24 at 16:02. Electronically submitted by Katerin Silva ([facility]). I personally scribed for NEY MENDOZA DO ([email or web address]) on 07/09/24 at 18:30. Electronically submitted by Katerin Silva ([facility]). I personally scribed for NEY MENDOZA DO ([email or web address]) on 07/09/24 at 19:57. Electronically submitted by Katerin Silva ([facility]). I personally scribed for NEY MENDOZA DO ([email or web address]) on 07/10/24 at 00:08. Electronically submitted by Maximiliano Mcginnis ([email or web address]). NEY MENDOZA DO Jul 09, 2024 16:02
--- NOTE | 2024-07-09 16:28 | DVH ---
CLINICAL INDICATION: pain TECHNIQUE: 4 radiographic views of the right 5th toe were obtained. Comparison: None FINDINGS/IMPRESSION: There is no evidence of acute fracture or dislocation. The visualized joint space is well maintained. The alignment is anatomical. There is no radiopaque foreign body.
--- NOTE | 2024-07-09 16:37 | DVH ---
EXAM: US Duplex Bilateral Lower Extremities Veins CLINICAL INDICATION: leg pain TECHNIQUE: Real-time duplex ultrasound scan of the bilateral lower extremity veins integrating B-mod e two-dimensional vascular structure, Doppler spectral analysis, color flow Doppler imaging and compr ession. COMPARISON: LT LOWER DVT on DOS: 09/22/21 FINDINGS: RIGHT DEEP VEINS: Unremarkable. No DVT in the right common femoral, femoral, proximal deep femoral or popliteal veins. The veins demonstrate normal color flow, are normally compressible, with normal phasic flow and/or augmentation response. RIGHT SUPERFICIAL VEINS: Unremarkable. No thrombus in the visualized right great saphenous vein. LEFT DEEP VEINS: Unremarkable. No DVT in the left common femoral, femoral, proximal deep femoral o r popliteal veins. The veins demonstrate normal color flow, are normally compressible, with normal p hasic flow and/or augmentation response. LEFT SUPERFICIAL VEINS: Unremarkable. No thrombus in the visualized left great saphenous vein. SOFT TISSUES: No acute findings. No popliteal cyst. OTHER FINDINGS: . None. . . .. IMPRESSION: No DVT.
[2024-07-09] MEDS: HYDROcodone-ACET 5/325MG TAB PO ONE (17:19)
[2024-07-09 18:13] LABS: Basophils # (auto) 0.1 10 ^3/uL (0-0.2); Basophils % (auto) 0.7 % (0.0-2.0); Eosinophils # (auto) 0.1 10 ^3/uL (0-0.8); Eosinophils % (auto) 1.2 % (0.0-7.0); Hematocrit 43.1 % (36.0-46.0); Hemoglobin 14.2 g/dL (12.2-16.2); Lymphocytes # (auto) 3.3 10 ^3/uL (0.4-5.4); Lymphocytes % (auto) 33.9 % (10.0-50.0); Mean Corpuscular Hemoglobin 26.9 pg (28.0-32.0); Mean Corpuscular Hgb Conc. 32.9 g/dL (32.0-36.0); Mean Corpuscular Volume 81.6 fL (80.0-100.0); Monocytes # (auto) 0.6 10 ^3/uL (0-1.3); Monocytes % (auto) 6.4 % (0.0-12.0); Neutrophils # (auto) 5.7 10 ^3/uL (1.6-8.6); Neutrophils % (auto) 57.8 % (37.0-80.0); Nucleated Red Blood Cells % 0.1 %; Platelet Count (auto) 297 10^3/uL (140-450); Red Blood Cells 5.28 10^6/uL (4.0-5.20); Red Cell Distribution Width 13.6 % (11.8-14.3); White Blood Cell 9.9 10^3/uL (4.4-10.8)
[2024-07-09 18:31] LABS: Alanine Aminotransferase 21 U/L (7-40); Albumin 4.8 g/dL (3.2-4.8); Alkaline Phosphatase 74 U/L (46-116); Anion Gap 12 (5-15); Aspartate Aminotransferase 16 U/L (13-40); BUN/Creatinine Ratio 10.9 (10.0-20.0); Bilirubin, Total 1.2 mg/dL (0.2-1.0); Calcium 9.9 mg/dL (8.7-10.4); Carbon Dioxide 22 mmol/L (20-31); Chloride 99 mmol/L (98-107); Total Protein 7.6 g/dL (5.7-8.2)
[2024-07-09 19:18] LABS: Blood Urea Nitrogen 7 mg/dL (9-23); Glucose 263 mg/dL (74-106); Sodium 133 mmol/L (136-145)
[2024-07-09 19:21] LABS: Erythrocyte Sedimentation Rate 19 mm/hr (0-20)
[2024-07-09 19:24] LABS: Lactic Acid w/Reflex 3.5 mmol/L (0.4-2.0)
[2024-07-09] MEDS: SODIUM CHLORIDE 0.9% 1,000 ML IV ONE ×2 (20:00→21:45)
[2024-07-09 22:26] VITALS: PULSE 61; RESP 18; O2SAT 96
[2024-07-10] MEDS: CLINDAMYCIN 900MG IV 50 ML IV ONE (00:16)
[2024-07-10] MEDS ORDERED: MORPHINE SULFATE INJ 2 MG/ml SYRG IV PRN (01:45)
[2024-07-10] MEDS ORDERED: NITROGLYCERIN 0.4 MG SL TAB SL PRN (01:45)
[2024-07-10] MEDS ORDERED: DEXTROSE (50%) 50ML SYRG IV PRN (01:45)
--- NOTE | 2024-07-10 01:49 | DVHHPRES ---
History of Present Illness Resident Creating Document: FRANNY JAFFE RESIDENT History of Present Illness Lindy Verduzco is a 33-year-old female with a PMH of type 2 DM, asthma, HLD, sciatica presented to the ED with the chief complaints of tingling, numbness, sharp pain in the b/l feet for past 2 months. Patient reported she is not on medications for DM, HLD, asthma for past 2 years due to insulin she shows. The patient started having tingling and numbness and pain to touch, pain when walking for past 2 months which is getting worsening, difficulty in walking due to discomfort which made her to visit ED. patient did not monitor her blood sugar at home cause he do not have glucometer. Patient also presents with right 5th digit bruising s/p stubbing toe chasing her cat. No lacerations reported. Patient denies nausea, vomiting, diarrhea, abdominal pain, dizziness, and other acute associated symptoms PMH: Type 2 DM, asthma, HLD, sciatica PSH: Appendectomy Family history: Fibromyalgia neuropathy in family Social history: Lives with family. Smokes marijuana and occasional alcohol abuse but denies other drug abuse Allergies: Amoxicillin and penicillins Home medications: None Review of Systems Constitutional: No: Fever, Chills, Sweats, Weakness, Malaise, Other Eyes: No: Pain, Vision change, Conjunctivae inflammation, Eyelid inflammation, Other, Redness ENT: No: Ear pain, Ear discharge, Nose pain, Nose discharge, Nose congestion, Mouth pain, Mouth swelling, Throat pain, Throat swelling, Other Respiratory: No: Cough, Dry, Shortness of breath, SOB with excertion, Wheezing, Hemoptysis, Pleuritic Pain, Sputum, Wheezing, Other Cardiovascular: No: Chest Pain, Palpitations, Orthopnea, Paroxysmal Noc. Dyspnea, Edema, Lt Headedness, Other Gastrointestinal: No: Nausea, Vomiting, Abdominal Pain, Diarrhea, Constipation, Melena, Hematochezia, Other Genitourinary: No Dysuria, No Frequency, No Incontinence, No Hematuria, No Retention, No Other Musculoskeletal: foot pain (Tingling and numbness) Skin: No: Rash, Lesions, Jaundice, Bruising, Other Neurological: Other (Tingling and numbness in bilateral feet) Allergies: Coded Allergies: Amoxicillin (Verified Allergy, Unknown, 02/26/18) Penicillins (Verified Allergy, Unknown, 08/29/15) Medications Current Medications Medications Dose Ordered Sig/Satish Route Start Time Stop Time Status Last Admin Dose Admin Sodium Chloride 10 ml Q8HR IV 07/10/24 06:00 Sodium Chloride 1,000 ml @ 60 mls/hr [id number] IV 07/10/24 01:45 Ondansetron HCl 4 mg Q4HP PRN IV 07/10/24 01:45 Enoxaparin Sodium 40 mg DAILY SC 07/10/24 10:00 Acetaminophen 650 mg Q6HP PRN PO 07/10/24 01:45 Morphine Sulfate 2 mg Q4HPRN PRN IV 07/10/24 01:45 Nitroglycerin 0.4 mg Q5MINP PRN SL 07/10/24 01:45 Morphine Sulfate 2 mg Q30M PRN IV 07/10/24 01:45 Diagnostic Test (Pha) 1 strip ACHS 07/10/24 07:00 Insulin Human Regular ACHS SC 07/10/24 07:00 Dextrose 50 ml UD PRN IV 07/10/24 01:45 Exam Vital Signs Vital Signs Date Time Temp Pulse Resp B/P (MAP) Pulse Ox O2 Delivery O2 Flow Rate FiO2 07/09/24 22:26 61 18 96 Room Air* 0 21 07/09/24 22:25 98.5 140/93 (109) 98.5 Exam Pt is lying on bed General Appearance: Anxious, Oriented X3, Cooperative, mild distress HEENT: Atraumatic, Mucous membranes moist/pink Respiratory: Clear to auscultation, Normal air movement, No added sounds Cardiovascular: Regular rate, Normal S1, Normal S2, No murmurs Abdominal: Active bowel sounds, Soft, no distention, no tenderness Extremities: Pain to touch bilateral feet. No edema, Normal pulses, Skin: No Significant rash, except past surgical scars Neuro: Normal speech, Psych/Mental Status: Mental status NL, Mood NL Nurse was there as sharperone during examination Labs/Xrays Labs Test 07/09/24 23:10 07/09/24 17:55 Range/Units Lactic Acid Level 3.0 *H 0.4-2.0 mmol/L White Blood Count 9.9 4.4-10.8 10^3/uL Red Blood Count 5.28 H 4.0-5.20 10^6/uL Hemoglobin 14.2 12.2-16.2 g/dL Hematocrit 43.1 36.0-46.0 % Mean Corpuscular Volume 81.6 80.0-100.0 fL Mean Corpuscular Hemoglobin 26.9 L 28.0-32.0 pg Mean Corpuscular Hemoglobin Concent 32.9 32.0-36.0 g/dL Red Cell Distribution Width 13.6 11.8-14.3 % Platelet Count 297 140-450 10^3/uL Mean Platelet Volume 7.2 6.9-10.8 fL Neutrophils (%) (Auto) 57.8 37.0-80.0 % Lymphocytes (%) (Auto) 33.9 10.0-50.0 % Monocytes (%) (Auto) 6.4 0.0-12.0 % Eosinophils (%) (Auto) 1.2 0.0-7.0 % Basophils (%) (Auto) 0.7 0.0-2.0 % Neutrophils # (Auto) 5.7 1.6-8.6 10 ^3/uL Lymphocytes # (Auto) 3.3 0.4-5.4 10 ^3/uL Monocytes # (Auto) 0.6 0-1.3 10 ^3/uL Eosinophils # (Auto) 0.1 0-0.8 10 ^3/uL Basophils # (Auto) 0.1 0-0.2 10 ^3/uL Nucleated Red Blood Cells 0.1 % Erythrocyte Sedimentation Rate 19 0-20 mm/hr Sodium Level 133 L 136-145 mmol/L Potassium Level 4.0 3.5-5.1 mmol/L Chloride Level 99 98-107 mmol/L Carbon Dioxide Level 22 20-31 mmol/L Anion Gap 12 5-15 Blood Urea Nitrogen 7 L 9-23 mg/dL Creatinine 0.64 0.550-1.02 mg/dL Glomerular Filtration Rate Calc 119 >90 mL/min BUN/Creatinine Ratio 10.9 10.0-20.0 Serum Glucose 263 H 74-106 mg/dL Calcium Level 9.9 8.7-10.4 mg/dL Total Bilirubin 1.2 H 0.2-1.0 mg/dL Aspartate Amino Transferase (AST) 16 13-40 U/L Alanine Aminotransferase (ALT) 21 7-40 U/L Alkaline Phosphatase 74 46-116 U/L B-Type Natriuretic Peptide 22.07 0-100 pg/mL Total Protein 7.6 5.7-8.2 g/dL Albumin 4.8 3.2-4.8 g/dL Assessment/Plan Assessment/Plan # uncontrolled type 2 DM with complications #? Peripheral neuropathy likely due to diabetes - Hba1c 8.6 - Accu-Cheks and ISS -ordered gabapentin for now -DVT scan showed negative -ordered B12 level and TSH are wnl # Lactic acidosis -monitor lab for now -on IVF # Medication noncompliant -counseled regarding compliance for more than 17 minutes # marijuana abuse disorder -counseled regarding cessation for more than 17 minutes # contusion of left small toe -x-ray done, no fracture -pain management as needed # morbid obesity with a BMI 37 -counseled regarding lifestyle modifications # elevated blood pressure on POA likely due to anxiety - monitor for now PUD PPX: Protonix VTE PPX: Lovenox Diet: Diabetic diet Goals of care discussed with the patient for more than 27 minutes: Full code status Case discussed with Dr. Chapa, patient and nurse Plan discussed with: Patient My Orders Orders - FRANNY JAFFE RESIDENT Procedure Category Date Status Time Admit ADMIT 07/10/24 Transmitted 01:31 Allergies MARIBEL 07/10/24 In Process 01:31 Code Status CODE 07/10/24 Transmitted 01:31 Sodium Chloride Lock PHA 07/10/24 In Process (Saline Lock Ns) 06:00 Sodium Chloride 0.9% PHA 07/10/24 In Process 01:45 Ondansetron Hcl PHA 07/10/24 In Process (Zofran) 01:45 Enoxaparin Sodium PHA 07/10/24 In Process (Lovenox) 10:00 Cardiac DIET 07/10/24 Transmitted Diet-2gna,Lofat,Lochol Breakfast Condition: Stable AMRIBEL 07/10/24 In Process 01:31 Acetaminophen Tablet PHA 07/10/24 In Process (Tylenol Tablet) 01:45 Morphine Sulfate PHA 07/10/24 In Process Injection 01:45 Nitroglycerin PHA 07/10/24 In Process Sublingual (Ntrostat 01:45 Morphine Sulfate PHA 07/10/24 In Process Injection 01:45 Oxygen By Nasal RT 07/10/24 Transmitted Cannula 01:31 Stat Ekg For Chest MARIBEL 07/10/24 In Process Pain 01:31 Notify Md Of Changes MARIBEL 07/10/24 In Process From Base 01:31 Comprehensive LAB 07/10/24 Logged Metabolic Panel 04:00 Complete Blood Count LAB 07/10/24 Logged 04:00 Ammonia LAB 07/10/24 Logged 01:34 Drug Screen LAB 07/10/24 Logged 01:34 Blood Alcohol LAB 07/10/24 Logged 01:34 Thyroid Stimulating LAB 07/10/24 Logged Hormone 01:34 Rapid Influenza A&B LAB 07/10/24 Logged 01:34 Covid19 Antigen Asha LAB 07/10/24 Logged Magnesium LAB 07/10/24 Logged 01:34 Urinalysis LAB 07/10/24 Logged 01:34 Vitamin B12 LAB 07/10/24 Logged 01:34 Glucose Blood PHA 07/10/24 In Process (Accu-Chek Comfort 07:00 Insulin R (Human) PHA 07/10/24 In Process (Insulin R) 07:00 Dextrose 50% Syringe PHA 07/10/24 In Process 01:45 Date of Service: Jul 10, 2024 Billing Provider: DENIS CHAPA MD Common Visit Codes: [id number] INP/OBS CARE (HIGH) FRANNY JAFFE RESIDENT Jul 10, 2024 01:49 DENIS CHAPA MD Jul 10, 2024 08:43
[2024-07-10 02:18] LABS: Basophils # (auto) 0.1 10 ^3/uL (0-0.2); Basophils % (auto) 0.6 % (0.0-2.0); Eosinophils # (auto) 0.1 10 ^3/uL (0-0.8); Eosinophils % (auto) 1.3 % (0.0-7.0); Hematocrit 40.5 % (36.0-46.0); Hemoglobin 13.4 g/dL (12.2-16.2); Lymphocytes # (auto) 3.4 10 ^3/uL (0.4-5.4); Lymphocytes % (auto) 37.7 % (10.0-50.0); Mean Corpuscular Hemoglobin 26.9 pg (28.0-32.0); Mean Corpuscular Volume 81.4 fL (80.0-100.0); Monocytes # (auto) 0.6 10 ^3/uL (0-1.3); Monocytes % (auto) 7.1 % (0.0-12.0); Neutrophils # (auto) 4.9 10 ^3/uL (1.6-8.6); Neutrophils % (auto) 53.3 % (37.0-80.0); Nucleated Red Blood Cells % 0.1 %; Platelet Count (auto) 277 10^3/uL (140-450); Red Blood Cells 4.97 10^6/uL (4.0-5.20); Red Cell Distribution Width 13.7 % (11.8-14.3); White Blood Cell 9.1 10^3/uL (4.4-10.8)
[2024-07-10 02:27] LABS: Alanine Aminotransferase 18 U/L (7-40); Alkaline Phosphatase 63 U/L (46-116); Anion Gap 11 (5-15); BUN/Creatinine Ratio 11.7 (10.0-20.0); Calcium 8.8 mg/dL (8.7-10.4); Carbon Dioxide 21 mmol/L (20-31); Chloride 102 mmol/L (98-107); Magnesium 1.6 mg/dL (1.6-2.6); Potassium 3.6 mmol/L (3.5-5.1)
[2024-07-10 02:28] LABS: Albumin 4.2 g/dL (3.2-4.8); Bilirubin, Total 0.9 mg/dL (0.2-1.0); Total Protein 6.7 g/dL (5.7-8.2)
[2024-07-10 03:00] LABS: Aspartate Aminotransferase 11 U/L (13-40); Blood Alcohol < 3.0 mg/dL (<10); Blood Urea Nitrogen 7 mg/dL (9-23); Glucose 255 mg/dL (74-106); Sodium 134 mmol/L (136-145)
[2024-07-10] MEDS: PANTOPRAZOLE 40 MG/10 ML VIAL INJ IV ONE (03:05)
[2024-07-10] MEDS: SODIUM CHLORIDE 0.9% 1,000 ML IV SCH ×4 (03:06→20:15)
[2024-07-10] MEDS: GABAPENTIN 100 MG CAP PO ONE (03:21)
[2024-07-10 04:11] LABS: COVID19 ANTIGEN SOFIA FIA NEGATIVE (NEGATIVE); Rapid Influenza A Negative (Negative); Rapid Influenza B Negative (Negative)
[2024-07-10] MEDS: SODIUM CHLOR 0.9% PF (SALINE LOCK) 10ML VIAL/SYR IV SCH (06:02)
[2024-07-10] MEDS: ACCU-CHEK COMFORT CURVE STRIP VI SCH (07:00)
[2024-07-10] MEDS: InsuLIN REG 1unit/0.01ml Soln (100units/ml) SC SCH ×2 (08:15→16:24)
[2024-07-10 08:51] LABS: Ferritin 93.4 ng/mL (10-291)
[2024-07-10 08:52] LABS: Folate (Folic Acid) 9.07 ng/mL (>5.38)
[2024-07-10 09:23] LABS: Lactic Acid w/Reflex 2.6 mmol/L (0.4-2.0)
[2024-07-10] MEDS: ONDANSETRON HCL 4 MG/2 ML VIAL IV PRN (09:45)
[2024-07-10] MEDS: MORPHINE SULFATE INJ 2 MG/ml SYRG IV PRN (09:45)
[2024-07-10] MEDS: ENOXAPARIN SOD 40 MG/0.4 ML SYRINGE SC SCH (10:13)
[2024-07-10 11:03] VITALS: BP 163/85; PULSE 67; RESP 17; TEMP 98.1; O2SAT 97
--- NOTE | 2024-07-10 11:14 | DVHPNRES ---
Progress Note Date Seen: Jul 10, 2024 Resident Creating Document: HAYDEE CREWS RESIDENT Medical Necessity Reason Pt with a Central, PICC or Fol: No Subjective Review of Systems Lindy Verduzco is a 33-year-old female with a PMH of hypertension, type 2 DM, asthma, HLD, sciatica presented to the ED with the chief complaints of tingling, numbness, sharp pain in the b/l feet for past 2 months. Patient reported she is not on medications for DM, HLD, asthma for past 2 years due to insurance issues. The patient started having tingling and numbness and pain to touch, pain when walking for past 2 months which is getting worsening, difficulty in walking due to discomfort which made her to visit ED. patient did not monitor her blood sugar at home cause he do not have glucometer. Patient also presents with right 5th digit bruising s/p stubbing toe chasing her cat. No lacerations reported. Patient denies nausea, vomiting, diarrhea, abdominal pain, dizziness, and other acute associated symptoms. Patient denies shortness of breaths/chest pain/palpitations/diaphoresis/abdominal or urinary symptoms. Lower extremity Dopplers negative, toe x-ray is negative. Lactic acid elevated at 3.5, patient was started on IV NS. On examination, she has a lot of tenderness in bilateral lower extremity, with bruise seen on the right 5th digit. Feeble pulses. PMH: Type 2 DM, asthma, HLD, sciatica PSH: Appendectomy Family history: Fibromyalgia neuropathy in family Social history: Lives with family. Smokes marijuana and occasional alcohol abuse but denies other drug abuse Allergies: Amoxicillin and penicillins Home medications: None Patient seen and examined at the bedside. Arterial duplex pending Objective vital signs Vital Sign Date Time Temp Pulse Resp B/P (MAP) Pulse Ox O2 Delivery O2 Flow Rate FiO2 07/10/24 10:12 98.1 66 16 182/87 (118) 97 98.1 07/10/24 07:49 Room Air 07/09/24 22:26 0 21 Total Intake and Output 07/09/24 07/09/24 07/10/24 15:00 23:00 07:00 Intake Total 1000 ml 1050 ml Balance 1000 ml 1050 ml medications Current Medications Medications Dose Ordered Sig/Satish Route Start Time Stop Time Status Last Admin Dose Admin Sodium Chloride 10 ml Q8HR IV 07/10/24 06:00 07/10/24 06:02 10 ML Ondansetron HCl 4 mg Q4HP PRN IV 07/10/24 01:45 07/10/24 09:45 4 MG Enoxaparin Sodium 40 mg DAILY SC 07/10/24 10:00 07/10/24 10:13 40 MG Acetaminophen 650 mg Q6HP PRN PO 07/10/24 01:45 Morphine Sulfate 2 mg Q4HPRN PRN IV 07/10/24 01:45 07/10/24 09:45 2 MG Nitroglycerin 0.4 mg Q5MINP PRN SL 07/10/24 01:45 Morphine Sulfate 2 mg Q30M PRN IV 07/10/24 01:45 Diagnostic Test (Pha) 1 strip ACHS 07/10/24 07:00 07/10/24 07:00 1 STRIP Dextrose 50 ml UD PRN IV 07/10/24 01:45 Sodium Chloride 1,000 ml @ 100 mls/hr Q10H IV 07/10/24 08:30 07/10/24 09:45 100 MLS/HR Ergocalciferol 50,000 unit Q7D PO 07/10/24 10:00 Insulin Human Regular IQ4HR SC 07/10/24 12:00 Lisinopril 10 mg DAILY PO 07/11/24 10:00 UNV Examination Patient lying in bed, in no acute distress General: Well-built, afebrile, palor, mucosae are moist Cardiovascular: Regular S1 and S2. No murmurs, gallops or rubs. No JVD elevation. Bilateral nonpitting edema Respiratory: Normal B/L air entry on room air. Clear lung sounds on auscultation Abdomen: Soft, nontender, nondistended, normoactive bowel sounds, no rebound tenderness, no organomegaly, no masses Genitourinary: Deferred MSK/skin: Mobilizes 4 limbs. No poikilotherma but tenderness in bilateral lower extremity, with bruise seen on the right 5th digit. Feeble pulses. Neurological: No motor, no sensitive deficits, normal speech. Pupils are isocoric and reactive. 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 No hemodynamically significant stenosis in the left lower extremity. Uncontrolled type 2 diabetes mellitus A1c 8.6 -continue moderate ISS Hypertensive urgency Uncontrolled hypertension -started lisinopril 10 mg daily -renal ultrasound ordered -EKG ordered Ruled out DVT -Lower extremity Doppler negative # uncontrolled type 2 DM with complications Lactic acidosis -continue IV NS Medication noncompliant -counseled regarding compliance for more than 17 minutes Marijuana a abuse disorder -counseled regarding cessation for more than 17 minutes Contusion of left small toe -x-ray done, no fracture -pain management as needed Morbid obesity with a BMI 37 -counseled regarding lifestyle modifications Vitamin-D deficiency -supplemented PUD PPX: Protonix VTE PPX: Lovenox Diet: Diabetic diet Goals of care discussed with the patient for more than 27 minutes: Full code status Case discussed with Dr. Harris, patient and nurse Plan discussed with: Patient My Orders My Orders Orders - HAYDEE CREWS RESIDENT Procedure Category Date Status Time Blood Culture GORDY 07/10/24 In Process 07:47 Vitamin B1 (Thiamine) LAB 07/10/24 In Process 07:47 Lead Blood Adult LAB 07/10/24 In Process (>=17 Years) 07:47 Neeta; Direct LAB 07/10/24 In Process 07:47 Sodium Chloride 0.9% PHA 07/10/24 In Process 08:30 Bilat Low Ext Art US 07/10/24 Logged Duplex 09:57 Ergocalciferol PHA 07/10/24 In Process (Vitamin D 50,000 10:00 Cardiac DIET 07/10/24 Transmitted Diet-2gna,Lofat,Lochol Lunch Lactic Acid W/ Reflex LAB 07/10/24 Logged Order 14:00 Rail Tractor Operator ORDERS 07/10/24 Transmitted 10:00 Transfer Orders XFER 07/10/24 Transmitted 10:00 Insulin R (Human) PHA 07/10/24 In Process (Insulin R) 12:00 Electrocardigram EKG 07/10/24 Logged 10:05 Uric Acid LAB 07/10/24 In Process 10:58 Renal Artery Lmtd US 07/10/24 Logged 10:58 Lisinopril Tablet PHA 07/10/24 Logged (Zestril Tablet) 11:00 Lisinopril Tablet PHA 07/11/24 Logged (Zestril Tablet) 10:00 HAYDEE CREWS RESIDENT Jul 10, 2024 11:14
--- NOTE | 2024-07-10 12:10 | DVH ---
Bilateral Lower Extremity Arterial Duplex Clinical History: feeble pulses, tenderness, paresthesia Comparison: None Technique: Duplex Doppler evaluation including color Doppler and spectral/pulsed waveform analysis of the lower extremity arteries was performed. Findings: RIGHT: Peak systolic velocities are as follows: [employer] 150 cm/s Deep femoral 77 cm/s SFA proximal 152 cm/s SFA mid-portion 133 cm/s SFA distal 127 cm/s Popliteal 125 cm/s Posterior tibial 119 cm/s Anterior tibial 135 cm/s Peroneal nv cm/s Dorsalis pedis 146 cm/s The waveforms are triphasic with diastolic flow. LEFT: Peak systolic velocities are as follows: [employer] 127 cm/s Deep femoral 65 cm/s SFA proximal 148 cm/s SFA mid-portion 127 cm/s SFA distal 105 cm/s Popliteal 101 cm/s Posterior tibial 109 cm/s Anterior tibial 101 cm/s Peroneal nv cm/s Dorsalis pedis 101 cm/s The waveforms are triphasic with diastolic flow. IMPRESSION: 20-49% stenosis of the right common femoral artery and right proximal superficial femoral artery base d on peak systolic velocity criteria. No hemodynamically significant stenosis in the left lower extremity. REFERENCE VALUES, [facility] ([facility]) vascular Imaging Lab Criteria: Peak systolic velocity ranges (in cm/sec) are as follows: <150 cm/s - <20 % stenosis 150-200 cm/s - 20-49% stenosis 200-300 cm/s - 50-75% stenosis >300 cm/s -> 75% stenosis
[2024-07-10] MEDS: ERGOCALCIFEROL 50,000 UNIT(1.25MG) CAP PO SCH (13:09)
[2024-07-10] MEDS: LISINOPRIL 5 MG TAB PO ONE (13:12)
[2024-07-10] MEDS ORDERED: SODIUM CHLORIDE 0.9% 1,000 ML IV SCH (15:10)
[2024-07-10 15:47] LABS: Lactic Acid w/Reflex 3.5 mmol/L (0.4-2.0)
[2024-07-10 16:00] LABS: CRP High Sensitivity 0.88 mg/dL (<1.0)
[2024-07-10] MEDS: cefTRIAXone 1GM/50ML D5W 50 ML IV ONE (17:14)
[2024-07-10 18:28] VITALS: BP 144/75; PULSE 62; RESP 18; TEMP 98; O2SAT 96
[2024-07-10 20:19] LABS: Urine Bacteria MOD /hpf (None Seen); Urine Blood Negative /uL (Negative); Urine Clarity Clear (Clear); Urine Color Light-Yellow (Yellow); Urine Mucus FEW (None Seen); Urine Protein, UAD Negative (Negative); Urine Specific Gravity 1.019 (1.001-1.035); Urine Squamous Epithelial Cell FEW /hpf (<5); Urine Urobilinogen Normal (Negative); Urine WBC 20 /HPF (0-5); Urine pH 5.5 (5.0-9.0)
[2024-07-10 20:24] LABS: Amphetamine Screen, Urine Neg (NEGATIVE); Barbiturate Scree,Urine Neg (NEGATIVE); Benzodiazephine Screen, Urine Neg (NEGATIVE); Cannabinoid Screen, Urine Pos (NEGATIVE); Opiate Scree,Urine Neg (NEGATIVE); Phencyclidine Screen, Urine Neg (NEGATIVE)
[2024-07-10 20:25] LABS: Cocaine Screen, Urine Neg (NEGATIVE)
[2024-07-10 21:47] VITALS: PULSE 71; RESP 16; O2SAT 95
[2024-07-10 23:03] VITALS: BP 163/85; PULSE 67; RESP 17; TEMP 98.1; O2SAT 97
[2024-07-11] MEDS: ACETAMINOPHEN 325 MG TAB PO PRN (00:11)
[2024-07-11 01:00] VITALS: BP 151/61; PULSE 62; RESP 17; TEMP 97.7; O2SAT 96
[2024-07-11 04:45] LABS: Basophils # (auto) 0.1 10 ^3/uL (0-0.2); Eosinophils # (auto) 0.1 10 ^3/uL (0-0.8); Hemoglobin 14.6 g/dL (12.2-16.2); Neutrophils # (auto) 5.3 10 ^3/uL (1.6-8.6); Red Cell Distribution Width 13.5 % (11.8-14.3); White Blood Cell 10.5 10^3/uL (4.4-10.8)
[2024-07-11 04:48] LABS: Basophils % (auto) 0.6 % (0.0-2.0); Chloride 104 mmol/L (98-107); Eosinophils % (auto) 1.1 % (0.0-7.0); Lymphocytes # (auto) 4.4 10 ^3/uL (0.4-5.4); Lymphocytes % (auto) 41.6 % (10.0-50.0); Mean Corpuscular Hemoglobin 26.9 pg (28.0-32.0); Mean Corpuscular Hgb Conc. 33.1 g/dL (32.0-36.0); Mean Corpuscular Volume 81.1 fL (80.0-100.0); Monocytes # (auto) 0.7 10 ^3/uL (0-1.3); Monocytes % (auto) 6.4 % (0.0-12.0); Neutrophils % (auto) 50.3 % (37.0-80.0); Nucleated Red Blood Cells % 0.1 %; Platelet Count (auto) 313 10^3/uL (140-450); Red Blood Cells 5.43 10^6/uL (4.0-5.20)
[2024-07-11 04:49] LABS: Anion Gap 9 (5-15); Calcium 9.7 mg/dL (8.7-10.4); Carbon Dioxide 23 mmol/L (20-31)
[2024-07-11 04:54] LABS: BUN/Creatinine Ratio 10.3 (10.0-20.0)
[2024-07-11 04:55] LABS: Blood Urea Nitrogen 6 mg/dL (9-23); Glucose 164 mg/dL (74-106); Sodium 136 mmol/L (136-145)
[2024-07-11 05:00] VITALS: BP 148/85; PULSE 61; RESP 16; TEMP 98; O2SAT 96
[2024-07-11 08:00] VITALS: PULSE 88; RESP 18; O2SAT 96
[2024-07-11] MEDS ORDERED: ACCU-CHEK COMFORT CURVE STRIP VI SCH ×2 (08:00→11:30)
[2024-07-11] MEDS: LISINOPRIL 5 MG TAB PO SCH (09:07)
[2024-07-11] MEDS: cefTRIAXone 1GM/50ML D5W 50 ML IV SCH (09:07)
[2024-07-11 09:30] VITALS: BP 169/107; PULSE 74; RESP 18; TEMP 97.5; O2SAT 95
--- NOTE | 2024-07-11 09:34 | DVH ---
INDICATION: HTN Urgency TECHNIQUE: Multiple real-time sonographic images of the kidneys and bladder were obtained. Duplex Doppler evaluation including color Doppler and spectral/pulsed waveform analysis of the bilate ral renal arteries was performed. COMPARISON: None FINDINGS: The right kidney measures 12.5 cm in length. The right renal echogenicity, contour and cortical thick ness are within normal limits. No hydronephrosis or large masses/calculi are seen. The left kidney measures 13.2 cm in length. The left renal echogenicity, contour, and cortical thickn ess are within normal limits. No hydronephrosis or large masses/calculi are seen. Aorta peak systolic velocity, 93 cm/s Right renal artery peak systolic velocity, 155 cm/s (< 180 cm/s = normal). Left renal artery peak systolic velocity 260 cm/s (< 180 cm/s = normal). Right RAR : 1.7 (< 3.5, normal) Left RAR 2.8 (< 3.5, normal) Right RI: 0.7 (< 0.75, normal) Left RI: 0.6 (< 0.75, normal) IMPRESSION: Elevated velocities in the left renal artery ; nonspecific. This can be seen in renal artery stenosi s. Clinical correlation advised. *Jovita Lanier Techniques in Noninvasive Vascular Diagnosis 2001
[2024-07-11] MEDS ORDERED: InsuLIN REG 1unit/0.01ml Soln (100units/ml) SC SCH ×2 (11:30→22:00)
[2024-07-11] MEDS ORDERED: LISINOPRIL 5 MG TAB PO ONE (12:00)
[2024-07-11] MEDS ORDERED: CEPH250C PO (12:02)
[2024-07-11 12:51] VITALS: BP 172/96; PULSE 68; RESP 20; TEMP 97.4; O2SAT 96
[2024-07-11 13:16] VITALS: BP 134/79
--- NOTE | 2024-07-11 15:51 | DVHDSRES ---
Discharge Summary Date of Admission Resident Creating Document: HAYDEE CREWS RESIDENT Jul 10, 2024 at 01:31 Date of Discharge: Jul 11, 2024 Labs/Diagnostic Data: Laboratory Results Test 07/11/24 11:24 07/11/24 04:10 07/10/24 19:40 07/10/24 19:15 POC Glucose 248 mg/dl (70-106) White Blood Count 10.5 10^3/uL (4.4-10.8) Red Blood Count 5.43 10^6/uL (4.0-5.20) Hemoglobin 14.6 g/dL (12.2-16.2) Hematocrit 44.0 % (36.0-46.0) Mean Corpuscular Volume 81.1 fL (80.0-100.0) Mean Corpuscular Hemoglobin 26.9 pg (28.0-32.0) Mean Corpuscular Hemoglobin Concent 33.1 g/dL (32.0-36.0) Red Cell Distribution Width 13.5 % (11.8-14.3) Platelet Count 313 10^3/uL (140-450) Mean Platelet Volume 7.5 fL (6.9-10.8) Neutrophils (%) (Auto) 50.3 % (37.0-80.0) Lymphocytes (%) (Auto) 41.6 % (10.0-50.0) Monocytes (%) (Auto) 6.4 % (0.0-12.0) Eosinophils (%) (Auto) 1.1 % (0.0-7.0) Basophils (%) (Auto) 0.6 % (0.0-2.0) Neutrophils # (Auto) 5.3 10 ^3/uL (1.6-8.6) Lymphocytes # (Auto) 4.4 10 ^3/uL (0.4-5.4) Monocytes # (Auto) 0.7 10 ^3/uL (0-1.3) Eosinophils # (Auto) 0.1 10 ^3/uL (0-0.8) Basophils # (Auto) 0.1 10 ^3/uL (0-0.2) Nucleated Red Blood Cells 0.1 % Sodium Level 136 mmol/L (136-145) Potassium Level 4.0 mmol/L (3.5-5.1) Chloride Level 104 mmol/L (98-107) Carbon Dioxide Level 23 mmol/L (20-31) Anion Gap 9 (5-15) Blood Urea Nitrogen 6 mg/dL (9-23) Creatinine 0.58 mg/dL (0.550-1.02) Glomerular Filtration Rate Calc 122 mL/min (>90) BUN/Creatinine Ratio 10.3 (10.0-20.0) Serum Glucose 164 mg/dL (74-106) Calcium Level 9.7 mg/dL (8.7-10.4) Lactic Acid Level 1.4 mmol/L (0.4-2.0) Urine Color Light-yellow (Yellow) Urine Clarity Clear (Clear) Urine pH 5.5 (5.0-9.0) Urine Specific [place] 1.019 (1.001-1.035) Urine Protein Negative (Negative) Urine Ketones Negative (Negative) Urine Blood Negative /uL (Negative) Urine Nitrite 2+ (Negative) Urine Bilirubin Negative (Negative) Urine Urobilinogen Normal mg/dL (Negative) Urine Leukocyte Esterase 1+ /uL (Negative) Urine RBC 2 /hpf (0 - 4) Urine Microscopic WBC 20 /HPF (0-5) Urine Squamous Epithelial Cells Few /hpf (<5) Urine Bacteria Mod /hpf (None Seen) Urine Mucus Few (None Seen) Urine Microalbumin 19.0 mg/L (<30.0) Urine Glucose 3+ mg/dL (Normal) Urine Opiates Screen Neg (NEGATIVE) Urine Fentanyl Screen Neg (NEGATIVE) Urine Barbiturates Screen Neg (NEGATIVE) Urine Phencyclidine Screen Neg (NEGATIVE) Urine Amphetamines Screen Neg (NEGATIVE) Urine Benzodiazepines Screen Neg (NEGATIVE) Urine Cocaine Screen Neg (NEGATIVE) Urine Cannabinoids Screen Pos (NEGATIVE) Test 07/10/24 08:13 07/10/24 02:30 07/10/24 01:54 07/09/24 17:55 Influenza Type A Antigen Negative (Negative) Influenza Type B Antigen Negative (Negative) SARS-CoV-2 Antigen (Rapid) Negative (NEGATIVE) Hemoglobin A1c 8.6 % A1C (<5.7) Uric Acid 7.2 mg/dL (3.1-7.8) Phosphorus Level 3.4 mg/dL (2.4-5.1) Magnesium Level 1.6 mg/dL (1.6-2.6) Ferritin 93.4 ng/mL (10-291) Total Bilirubin 0.9 mg/dL (0.2-1.0) Aspartate Amino Transferase (AST) 11 U/L (13-40) Alanine Aminotransferase (ALT) 18 U/L (7-40) Alkaline Phosphatase 63 U/L (46-116) Ammonia < 10 umol/L (11-32) Total Protein 6.7 g/dL (5.7-8.2) Albumin 4.2 g/dL (3.2-4.8) Vitamin B12 Level 570 pg/mL (211-911) Vitamin D 25-Hydroxy 12.6 ng/mL (30.0-100) Folic Acid 9.07 ng/mL (>5.38) Thyroid Stimulating Hormone (TSH) 2.35 uIU/mL (0.55-4.78) Plasma/Serum Blood Alcohol < 3.0 mg/dL (<10) Erythrocyte Sedimentation Rate 19 mm/hr (0-20) C-Reactive Protein High Sensitivity 0.88 mg/dL (<1.0) B-Type Natriuretic Peptide 22.07 pg/mL (0-100) Other Laboratory Tests 07/11/24 04:10 Brief Hx & Hospital Course: Lindy Verduzco is a 33-year-old female with a PMH of hypertension, type 2 DM, asthma, HLD, sciatica presented to the ED with the chief complaints of tingling, numbness, sharp pain in the b/l feet for past 2 months. Patient reported she is not on medications for DM, HLD, asthma for past 2 years due to insurance issues. The patient started having tingling and numbness and pain to touch, pain when walking for past 2 months which is getting worsening, difficulty in walking due to discomfort which made her to visit ED. patient did not monitor her blood sugar at home cause he do not have glucometer. Patient also presents with right 5th digit bruising s/p stubbing toe chasing her cat. No lacerations reported. Patient denies nausea, vomiting, diarrhea, abdominal pain, dizziness, and other acute associated symptoms. Patient denies shortness of breaths/chest pain/palpitations/diaphoresis/abdominal or urinary symptoms. Lower extremity Dopplers negative, toe x-ray is negative. Lactic acid elevated at 3.5, patient was started on IV NS. On examination, she has a lot of tenderness in bilateral lower extremity, with bruise seen on the right 5th digit. Feeble pulses. During the hospitalization, patient was diagnosed with right small toe cellulitis, IV ceftriaxone was started 07/11 along with IV saline. Patient had lactic acidosis which was resolved. Her pain improved subsequent to antibiotics. Given the claudication, Lower extremity duplex showed 20-49% stenosis of the right common femoral artery and right proximal superficial femoral artery based on peak systolic velocity criteria. No hemodynamically significant stenosis in the left lower extremity. Started on aspirin and statin. She was kept on moderate ISS for diabetes mellitus, A1c was 8.6. Lower extremity Doppler ruled out DVT. She had uncontrolled hypertension, in his started lisinopril 10 mg, which was increased to 20 mg daily. Renal duplex was performed,Elevated velocities in the left renal artery ; nonspecific. This can be seen in renal artery stenosis. Patient was advised to see cereal chemist as outpatient. 07/11-patient is hemodynamically stable, clinically stable and is therefore being discharged home with the following recommendations: Patient agreed to discharge planning. 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 Duplex Doppler evaluation including color Doppler and spectral/pulsed waveform analysis of the bilateral renal arteries was performed. COMPARISON: None FINDINGS: The right kidney measures 12.5 cm in length. The right renal echogenicity, contour and cortical thickness are within normal limits. No hydronephrosis or large masses/calculi are seen. The left kidney measures 13.2 cm in length. The left renal echogenicity, contour, and cortical thickness are within normal limits. No hydronephrosis or large masses/calculi are seen. Aorta peak systolic velocity, 93 cm/s Right renal artery peak systolic velocity, 155 cm/s (< 180 cm/s = normal). Left renal artery peak systolic velocity 260 cm/s (< 180 cm/s = normal). Right RAR : 1.7 (< 3.5, normal) Left RAR 2.8 (< 3.5, normal) Right RI: 0.7 (< 0.75, normal) Left RI: 0.6 (< 0.75, normal) IMPRESSION: Elevated velocities in the left renal artery ; nonspecific. This can be seen in renal artery stenosis. Clinical correlation advised. *Jovita Lanier Techniques in Noninvasive Vascular Diagnosis 2001 ATED BY: PRINCE CANNON MD ORDERING PHYSICIAN: HAYDEE CREWS RESIDENT PROCEDURE(s): BLEAD - BiLat Low Ext Art Duplex REASON: feeble pulses, tenderness, paresthesia ORDER NUMBER(s): [id number], ACCESSION NUMBER(s): [id number] Bilateral Lower Extremity Arterial Duplex Clinical History: feeble pulses, tenderness, paresthesia Comparison: None Technique: Duplex Doppler evaluation including color Doppler and spectral/pulsed waveform analysis of the lower extremity arteries was performed. Findings: RIGHT: Peak systolic velocities are as follows: [employer] 150 cm/s Deep femoral 77 cm/s SFA proximal 152 cm/s SFA mid-portion 133 cm/s SFA distal 127 cm/s Popliteal 125 cm/s Posterior tibial 119 cm/s Anterior tibial 135 cm/s Peroneal nv cm/s Dorsalis pedis 146 cm/s The waveforms are triphasic with diastolic flow. LEFT: Peak systolic velocities are as follows: [employer] 127 cm/s Deep femoral 65 cm/s SFA proximal 148 cm/s SFA mid-portion 127 cm/s SFA distal 105 cm/s Popliteal 101 cm/s Posterior tibial 109 cm/s Anterior tibial 101 cm/s Peroneal nv cm/s Dorsalis pedis 101 cm/s The waveforms are triphasic with diastolic flow. IMPRESSION: 20-49% stenosis of the right common femoral artery and right proximal superficial femoral artery based on peak systolic velocity criteria. No hemodynamically significant stenosis in the left lower extremity. REFERENCE VALUES, [facility] ([facility]) vascular Imaging Lab Criteria: Peak systolic velocity ranges (in cm/sec) are as follows: <150 cm/s - <20 % stenosis 150-200 cm/s - 20-49% stenosis 200-300 cm/s - 50-75% stenosis >300 cm/s -> 75% stenosis ATED BY: PRINCE CANNON MD DICTATED DATE/TIME: 07/10/24 120 SIGNED BY: PRINCE CANNON MD SIGNED DATE/TIME: 07/10/241206 CC: Condition at Discharge: Stable Final Diagnosis/Problems List Right 5th toe cellulitis Lactic acidosis-resolved Uncontrolled hypertension Likely renal artery stenosis Peripheral arterial disease 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 Uncontrolled type 2 diabetes mellitus A1c 8.6 Medication noncompliant Marijuana abuse disorder Morbidly obese Vitamin-D deficiency Discharge Disposition: Home Discharge Instruct/Medications Diet: Cardiac 2g Na,low cholest Activity: No Restrictions, As Tolerated Follow Up/Referral: Follow up cereal chemist as outpatient within 7 days Follow up with primary care physician within 7 days Follow up with discharge clinic appointment within 7 days Medications: Tablet Keflex 500 mg daily for next 5 days Discharge Statement: "Patient was advised to return to the ER or call 911 if any headaches, dizziness, shortness of breath, chest pain, abdominal pain, bleeding, fevers, or worsening of medical condition. Patient was counseled about treatment plan, medications, possible side effects, patientverbalized understanding. All questions were answered to the best of my ability. This discharge took greater then 30 minutes in planning, reviewing documentation, counseling the patient, and discussing with other team members." ASSESSMENT ASSESSMENT Assessment Right 5th toe cellulitis Uncontrolled hypertension Likely renal artery stenosis HAYDEE CREWS RESIDENT Jul 11, 2024 15:51
[2024-07-11] MEDS ORDERED: LISI20TA56 PO (15:52)
[2024-07-11] MEDS ORDERED: ATOR40TA52 PO (15:52)
[2024-07-11] MEDS ORDERED: ASPI1TAB20 PO (15:52)
== END 2024-07-11 13:55 | disposition home or self-care (01) | DRG 383 ==
LOC: ER 15:32 → OVERFLOW 07-10 01:31 → WEST WING 07-10 23:03
PROVIDERS: ADMIT Student in an Organized Health Care Education/Training Program; ATTEND Student in an Organized Health Care Education/Training Program
DX: L03.031 Cellulitis of right toe (principal); E87.20 Acidosis, unspecified; E11.51 Type 2 diabetes mellitus with diabetic peripheral angiopathy without gangrene; S90.31XA Contusion of right foot, initial encounter; E55.9 Vitamin D deficiency, unspecified; Z20.822 Contact with and (suspected) exposure to COVID-19; I16.0 Hypertensive urgency; J45.909 Unspecified asthma, uncomplicated; E78.5 Hyperlipidemia, unspecified; I70.1 Atherosclerosis of renal artery; S90.122A Contusion of left lesser toe(s) without damage to nail, initial encounter; X58.XXXA Exposure to other specified factors, initial encounter; I10 Essential (primary) hypertension; F12.10 Cannabis abuse, uncomplicated; E66.01 Morbid (severe) obesity due to excess calories; Z68.37 Body mass index [BMI] 37.0-37.9, adult; Z90.49 Acquired absence of other specified parts of digestive tract; Z91.148 Patient's other noncompliance with medication regimen for other reason; Y93.89 Activity, other specified; Y92.89 Other specified places as the place of occurrence of the external cause; Y99.8 Other external cause status
CPT/HCPCS: 36415; 73660; 80048; 80053; 80307; 80320; 81001; 82043; 82140; 82306; 82607; 82728; 82746; 82962; 83036; 83605; 83655; 83735; 83880; 84100; 84425; 84443; 84550; 85025; 85652; 86038; 86141; 87040; 87426; 87804; 93925; 93970; 93976; 96365; 96372; 96375; G0378; J1815; J2405; J3490

== ENCOUNTER 2025-02-22 11:42 | Emergency (ER) | payer MEDICAID ==
[~2025-02-22] VITALS: Ht 175.3 cm; Wt 146.2 kg
[~2025-02-22 11:42] MED LIST changes: +ASPI1TAB20 PO; +ATOR40TA52 PO; +CEPH250C PO; +LISI20TA56 PO; -ONDA-144 PO; -PSEU1TAB26 PO
[2025-02-22 12:57] VITALS: BP 143/87; PULSE 71; RESP 16; TEMP 98.4; O2SAT 97
--- NOTE | 2025-02-22 13:05 | ED.PDOC ---
History of Present Illness(SKN HPI Comments A 34 YEAR OLD FEMALE PRESENTS TO THE ED WITH COMPLAINT OF BILATERAL GREAT TOE REDNESS. PATIENT STATES SHE HAS BEEN EXPERIENCING BILATERAL GREAT TOE REDNESS WITH SWELLING AND MILD DRAINAGE FOR THE PAST 2 DAYS. PATIENT IS CONCERNED THAT SHE MAY HAVE AN INFECTION TO HER TOES AND WOULD LIKE TO BE EVALUATED. PATIENT DENIES FEVER, CHILLS, SHORTNESS OF BREATH, CHEST PAIN, ABDOMINAL PAIN, NAUSEA, VOMITING, HEADACHE, OR OTHER COMPLAINTS. NO OTHER SYMPTOMS OR MODIFYING FACTORS AT THIS TIME. PATIENT IS ALERT, ORIENTED X 4, AND HAS STEADY GAIT. Chief Complaint: Lower Extremity Time Seen by MD: 12:05 Primary Care Provider: none History of Present Illness: Nurses Notes, Medications, Allergies Allergies: Coded Allergies: Amoxicillin (Verified Allergy, Unknown, 02/26/18) Penicillins (Verified Allergy, Unknown, 08/29/15) Home Meds Active Scripts Lisinopril (Lisinopril) 20 Mg Tab, 1 TAB PO DAILY for 30 Days, #30 TAB 0 Refills Prov:[facility] 07/11/24 Atorvastatin Calcium (ATORVASTATIN CALCIUM) 40 Mg Tab, 1 TAB PO DAILY for 30 D ays, #30 TAB 0 Refills Prov:[facility] 07/11/24 Aspirin (Aspir-81) 81 Mg Tab, 1 TAB PO DAILY for 30 Days, #30 TAB 0 Refills Prov:[facility] 07/11/24 Cephalexin (KEFLEX CAPSULE) 250 Mg Cp, 500 MG PO BID for 5 Days, #10 CAP 0 Refills Prov:[facility] 07/11/24 Information Source: Patient Mode of Arrival: Ambulatory Severity: Mild Timing: Days Duration: Since onset, Days Prehospital treatment: None Location: Other (BILATERAL GREAT TOES) Mechanism: Spontaneous Onset Occurence: Indoors Object: None Condition of Object: None Retained Foreign Body: No Wound Type: None Immunization Status of Animal: NA Tetanus: Unknown History of: None Associated Signs and Symptoms: Redness, Pain Past Medical History PAST MEDICAL HISTORY: Asthma, DM, High Lipids Surgical History: Appendectomy RECREATION THERAPY AIDE History: No Pertinent RECREATION THERAPY AIDE History Family History Family History: Unknown Social History Smoker: Non-Smoker Alcohol: Occasionally Drugs: Marijuana Lives In: Home Constitutional: denies: chills, diaphoresis, fatigue, fever, malaise, sweats, weakness, others EENTM: denies: blurred vision, double vision, ear bleeding, ear discharge, ear drainage, ear pain, ear ringing, eye pain, eye redness, hearing loss, mouth pain, mouth swelling, nasal discharge, nose bleeding, nose congestion, nose pain, photophobia, tearing, throat pain, throat swelling, voice changes, others Respiratory: denies: cough, hemoptysis, orthopnea, SOB at rest, shortness of breath, SOB with excertion, stridor, wheezing, others Cardiovascular: denies: chest pain, dizzy spells, diaphoresis, Dyspnea on e xertion, edema, irregular heart beat, left arm pain, lightheadedness, palpitations, PND, syncope, others Gastrointestinal: denies: abdomen distended, abdominal pain, blood streaked bowels, constipated, diarrhea, dysphagia, difficulty swallowing, hematemesis, melena, nausea, poor appetite, poor fluid intake, rectal bleeding, rectal pain, vomiting, others Genitourinary: denies: abnormal vagina bleeding, burning, dyspareunia, dysuria, flank pain, frequency, hematuria, incontinence, pain, , vagina discharge, urgency, others Neurological: denies: dizziness, fainting, headache, left sided numbness, left sided weakness, numbness, paresthesia, pre-existing deficit, right sided numbness, right sided weakness, seizure, speech problems, tingling, tremors, weakness, others Musculoskeletal: denies: back pain, gout, joint pain, joint swelling, muscle pain, muscle stiffness, neck pain, others Integumetry: reports: others (BILATERAL GREAT TOE PAIN AND REDNESS); denies: bruises, change in color, change in hair/nails, dryness, laceration, lesions, lumps, rash, wounds Allergic/Immunocompromised: denies: Difficulty Healing, Frequent Infections, Hives, Itching, others Hematologic/Lymphatic: denies: anemia, blood clots, easy bleeding, easy bruising, swollen glands, others Endocrine: denies: excessive hunger, excessive sweating, excessive thirst, excessive urination, flushing, intolerance to cold, intolerance to heat, unexplained weight gain, unexplained weight loss, others Psychiatric: denies: anxiety, bipolar disorder, depression, hopeless, panic disorder, schizophrenia, sleepless, suicidal, others All Other Systems: Reviewed and Negative Physical Exam General Appearance: No Apparent Distress, Obese HEENT: Normal ENT Inspection, PERRL/EOMI, Pharynx Normal, TMs Normal Neck: Full Range of Motion, Non-Tender, Normal, Normal Inspection Respiratory: Chest Non-Tender, Lungs Clear, No Accessory Muscle Use, No Respiratory Distress, Normal Breath Sounds Cardiovascular: No Edema, No JVD, No Murmur, No Gallop, Normal Peripheral Pulses, Regular Rate/Rhythm Breast Exam: Deferred Gastrointestinal: No Organomegaly, Non Tender, No Pulsatile Mass, Normal Bowel Sounds, Soft Genitalia: Deferred Pelvic: Deferred Rectal: Deferred Extremities: No calf tenderness, Normal capillary refill, Normal range of motion, No pedal edema, Tender (AND REDNESS ON BILATERAL GREAT TOE, +PARONCHIA. ) Musculoskeletal : Apperance: Normal Neurologic: Alert, petroleum geologist II-XII nml as Tested, No Motor Deficits, Normal Affect, Normal Mood, No Sensory Deficits Cerebellar Function: Normal Reflexes: Normal Skin: Dry, Normal Color, Warm, Other (LOCALIZED REDNESS, MILD SWELLING AND TENDERNESS ON BILATERAL GREAT TOE, NO DRAINAGE, +PARONCHIA. ) Peripheral Pulses: 2+ carotid (R), 2+ carotid (L), 2+ dorsalis pedis (R), 2+ dorsalis pedis (L) Lymphatic: No Adenopathy Was a procedure done? Was a procedure done?: No Differential Diagnosis (INTG) Differential Diagnosis: N/A Differential Diagnosis: Atopic dermatitis, Contact Dermatitis, Impetigo, Intertrigo, Tinea, Urticaria, Other (ONYCHOMYCOSIS, PARONYCHIA) Differential Diagnosis: N/A Abscess: N/A Differential Diagnosis: Other X-Ray, Labs, Meds, VS Vital Signs Date Time Temp Pulse Resp B/P (MAP) Pulse Ox O2 Delivery O2 Flow Rate FiO2 02/22/25 12:57 98.4 71 16 143/87 (105) 97 98.4 02/22/25 12:57 71 16 97 Room Air 02/22/25 11:47 97.8 85 18 166/82 97 97.8 X-Ray, Labs, Meds, VS Comment EXTERNAL MEDICAL RECORDS REVIEWED: [NONE] INDEPENDENT HISTORIANS: [NONE] SOCIAL DETERMINANTS OF HEALTH: [NONE] LABS ORDERED: NONE REVIEWED AND INTERPRETED RESULTS: NONE IMAGING ORDERED: NONE TREATMENTS ORDERED: NONE PROCEDURES PERFORMED: NONE CRITICAL CARE TIME: NONE I HAVE DISCUSSED THE PATIENT WITH THE ATTENDING PHYSICIAN DR. TREJO AND HE AGREES WITH THE PATIENT'S PLAN OF CARE AND DISPOSITION. BASED ON HISTORY OF PRESENT ILLNESS, AND PHYSICAL EXAM, PATIENT WILL BE DISCHARGED HOME. DISCUSSED PLAN FOR DISCHARGE HOME WITH RX [KEFLEX AND MOTRIN 800 MG]. MEDICATION WARNINGS GIVEN. SHARED DECISION MAKING: PATIENT INSTRUCTED TO FOLLOW UP WITH PRIMARY CARE PROVIDER IN 1-2 DAYS FOR RE-EVALUATION OF SYMPTOMS. PATIENT VERBALIZES UNDERSTANDING TO RETURN TO ED FOR NEW OR WORSENING SYMPTOMS OR IF FOLLOW UP WITH PCP CANNOT BE OBTAINED. PATIENT FEELS COMFORTABLE GOING HOME AT THIS TIME. ALL QUESTIONS ADDRESSED AT TIME OF DISCHARGE. Time of 1ST Reevaluation: 13:08 Reevaluation 1ST: Improved Patient Education/Counseling: Diagnosis, Treatment, Need For Follow Up Family Education/Counseling: Diagnosis, Treatment, Need For Follow Up Medical Screening: No EMC Exist At This Time SEPSIS Sepsis Screen Date sepsis recognized/suspect: Feb 22, 2025 Time Sepsis recognized/suspect: 1149 Recent Procedure: No On Antibiotic Therapy: No Respiratory Rate >20: No Heart Rate >90: No Temp<36 C (96.8 F) or >38.3 C: No SBP <90 or MAP <65 mmHG: No New Acute Mental Status Change: No Is the patient on CPAP, BIPAP,: No Vital Signs Date Time Temp Pulse Resp B/P (MAP) Pulse Ox O2 Delivery O2 Flow Rate FiO2 02/22/25 12:57 98.4 71 16 143/87 (105) 97 98.4 02/22/25 12:57 71 16 97 Room Air 02/22/25 11:47 97.8 85 18 166/82 97 97.8 Departure 1 Departure Time of Disposition: 13:09 Impression: Primary Impression: Paronychia of great toe, left Additional Impression: Paronychia of great toe, right Disposition: 01 HOME / SELF CARE / HOMELESS Condition: Stable Additional Instructions: FOLLOW-UP WITH PCP IN 1 TO 2 DAYS. TAKE MEDICATIONS PRESCRIBED. RETURN TO ED FOR ANY NEW OR WORSENING SYMPTOMS. e-Prescriptions Ibuprofen (Ibuprofen) 800 Mg Tab 1 TAB PO TID, #30 TAB Prov: VICKEY FLORES 02/22/25 Cephalexin Monohydrate (Cephalexin) 500 Mg Cap 1 CAP PO QID, #40 CAP Prov: VICKEY FLORES 02/22/25 Discharged With: Self Critical Care Note Critical Care Time?: No Stability Stability form required: No I personally scribed for VICKEY FLORES ([email or web address]) on 02/22/25 at 13:05. Electronically submitted by Travis Wooten ([email or web address]). VICKEY FLORES Feb 22, 2025 13:05
[2025-02-22] MEDS ORDERED: CEPH500C PO (13:10)
[2025-02-22] MEDS ORDERED: IBUP-1456 PO (13:10)
== END 2025-02-22 13:14 | disposition home or self-care (01) ==
LOC: ER 11:42
DX: L03.031 Cellulitis of right toe (principal); L03.032 Cellulitis of left toe; F12.90 Cannabis use, unspecified, uncomplicated; F10.90 Alcohol use, unspecified, uncomplicated; J45.909 Unspecified asthma, uncomplicated; E11.9 Type 2 diabetes mellitus without complications; E78.5 Hyperlipidemia, unspecified; Z79.82 Long term (current) use of aspirin; Z79.899 Other long term (current) drug therapy; Z88.0 Allergy status to penicillin; Z90.49 Acquired absence of other specified parts of digestive tract